=== PATIENT | male | born 1985 | race African-American/Black ===

== ENCOUNTER 2017-09-11 12:09 | Inpatient (IN) | payer OTHER ==
[2017-09-11 17:26] VITALS: BMI 17.1
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
[2017-09-11] MEDS ORDERED: guaiFENesin/D-METHORPHAN HB 10 ML UNIT-DOSE CUPS PO PRN (18:20)
[2017-09-11] MEDS ORDERED: chlordiazePOXIDE HCL 25 MG CAPSULE PO PRN (18:20)
[2017-09-11] MEDS ORDERED: hydrOXYzine PAMOATE 50 MG CAPSULE (FP) PO PRN (18:20)
[2017-09-11] MEDS ORDERED: MAG HYDROX/AL HYDROX/SIMETH 30 ML UNIT-DOSE CUP PO PRN (18:20)
[2017-09-11] MEDS ORDERED: ACETAMINOPHEN 325 MG TABLET (FP) PO PRN (18:20)
[2017-09-11] MEDS ORDERED: MAGNESIUM CITRATE 300 ML BOTTLE PO PRN (18:20)
[2017-09-11] MEDS ORDERED: MAGNESIUM HYDROX 2400MG/30ML ORAL SUSPENSION 30 ML CUP PO PRN (18:20)
[2017-09-11] MEDS ORDERED: LOPERAMIDE HCL 2 MG CAPSULE PO PRN (18:20)
[2017-09-11] MEDS ORDERED: NICOTINE POLACRILEX 2 MG GUM BC PRN (18:20)
[2017-09-11] MEDS ORDERED: P-EPHED 60MG/TRIPROLIDI 2.5MG TABLET PO PRN (18:20)
[2017-09-11] MEDS ORDERED: MENTHOL/PHENOL 1 EACH UD MM PRN (18:20)
[2017-09-11] MEDS ORDERED: chlordiazePOXIDE HCL 25 MG CAPSULE PO ONE (19:15)
[2017-09-11] MEDS ORDERED: MELATONIN 5 MG TABLETS PO PRN (22:00)
[2017-09-11] MEDS: THIAMINE HCL 100 MG TABLET (FP) PO SCH (22:43)
[2017-09-11] MEDS: chlordiazePOXIDE HCL 25 MG CAPSULE PO SCH (22:43)
[2017-09-11 23:41] LABS: URINE APPEARANCE CLEAR; URINE BLOOD NEGATIVE (NEGATIVE); URINE COLOR AMBER; URINE GLUCOSE (UA) NEGATIVE (NEGATIVE); URINE KETONE NEGATIVE (NEGATIVE); URINE LEUK ESTERASE NEGATIVE (NEGATIVE); URINE NITRITE NEGATIVE (NEGATIVE); URINE UROBILINOGEN 4.0 E.U/dl mg/dL (0.2-1.0)
[2017-09-12 00:12] LABS: URINE PROTEIN 2+ (NEGATIVE)
[2017-09-12 00:30] LABS: EPI CELLS RARE /HPF (FEW); URINE HYALINE CAST 20 /lpf; URINE MUCUS MANY
[2017-09-12] MEDS: chlordiazePOXIDE HCL 25 MG CAPSULE PO SCH ×4 (05:12→22:21)
[2017-09-12] MEDS: NICOTINE 14 MG/24 HOURS TOPICAL PATCH TD SCH (10:29)
[2017-09-12] MEDS: PRENATAL VITAMINS W/ FOLIC ACID TABLET (FP) PO SCH (10:29)
[2017-09-12] MEDS ORDERED: ONDANSETRON *ODT* 4 MG TABLET SL PRN (10:34)
[2017-09-12 10:37] LABS: HEMATOCRIT 37.5 % (35.4-49); HEMOGLOBIN 12.7 GM/dL (11.7-16.9); MCHC 33.9 g/dl (32.0-35.9); MEAN CELL VOLUME 97.4 fl (80-96); MEAN PLT VOLUME 9.8 fl (7.5-11.1); PLATELET COUNT 105 K/MM3 (134-434); RBC 3.85 M/mm3 (4.00-5.60); RDW 12.8 % (11.9-15.9); WHITE BLOOD COUNT 2.9 K/mm3 (4.0-10.0)
[2017-09-12 10:39] LABS: ALBUMIN 3.7 g/dl (3.4-5.0); ANION GAP 8 (8-16); BLOOD UREA NITROGEN 4 mg/dL (7-18); CALCIUM 8.4 mg/dL (8.5-10.1); CHLORIDE 95 mmol/L (98-107); CO2 33 mmol/L (21-32); GLUCOSE,RANDOM 79 mg/dL (74-106); SODIUM 136 mmol/L (136-145)
[2017-09-12 10:49] LABS: ALK PHOS 101 U/L (45-117); BILIRUBIN,TOTAL 1.5 mg/dL (0.2-1.0); CREATININE 0.8 mg/dL (0.7-1.3); SGPT/ALT 334 U/L (12-78); TOT PROT 7.4 g/dl (6.4-8.2)
[2017-09-12 11:18] LABS: POTASSIUM 2.6 mmol/L (3.5-5.1); SGOT/AST 1133 U/L (15-37)
[2017-09-12] MEDS ORDERED: POTASSIUM CHLORIDE TABS 20 MEQ TABLET.ER (FP) PO ONE (12:45)
[2017-09-12] MEDS ORDERED: TETRAHYDROZOLINE HCL EYE DROPS OU PRN (14:26)
--- NOTE | 2017-09-12 14:34 | PN ---
S CIWA - CIWA Score Nausea/Vomitin Muscle Tremors: 3 Anxiety: 4-Mod. Anxious/Guarded Agitation: 0-Normal Activity Paroxysmal Sweats: 3 Orientation: 0-Oriented Tacttile Disturbances: 3-Moderate Itch/Numb/Burn Auditory Disturbances: 1-Very Mild Visual Disturbances: 2-Mild Sensitivity Headache: 0-None Present CIWA-Ar Total Score: 19 BHS Progress Note (SOAP) Subjective: Sweating, Fatigue, Anxious, Nausea, Tremors, constipation. Objective: PATIENT A & O X 3. NO ACUTE DISTRESS. 09/12/17 14:29 Vital Signs Temperature 98.1 F 09/12/17 11:16 Pulse Rate 82 09/12/17 12:30 Respiratory Rate 20 09/12/17 12:30 Blood Pressure 108/71 09/12/17 11:16 O2 Sat by Pulse Oximetry (%) Laboratory Tests 09/11/17 09/12/17 09/12/17 21:47 07:50 07:50 WBC RBC Hgb Hct MCV MCH MCHC RDW Plt Count MPV Sodium 136 Potassium 2.6 L* D Chloride 95 L Carbon Dioxide 33 H Anion Gap 8 BUN 4 L D Creatinine 0.8 Creat Clearance w eGFR > 60 Random Glucose 79 Calcium 8.4 L Total Bilirubin 1.5 H D AST 1133 H ALT 334 H D Alkaline Phosphatase 101 Total Protein 7.4 Albumin 3.7 Urine Color Adrienne Urine Appearance Clear Urine pH 5.0 D Ur Specific [place] 1.029 Urine Protein 2+ H Urine Glucose (UA) Negative Urine Ketones Negative Urine Blood Negative Urine Nitrite Negative Urine Bilirubin 4.0 Urine Urobilinogen 4.0 e.u/dl Ur Leukocyte Esterase Negative Urine WBC (Auto) 7 Urine RBC (Auto) None Ur Epithelial Cells Rare Hyaline Casts 20 Urine Mucus Many RPR Titer Nonreactive HIV 1&2 Antibody Screen HIV P24 Antigen 09/12/17 09/12/17 07:50 08:00 WBC 2.9 L D RBC 3.85 L Hgb 12.7 D Hct 37.5 MCV 97.4 H MCH 33.0 MCHC 33.9 RDW 12.8 Plt Count 105 L D MPV 9.8 D Sodium Potassium Chloride Carbon Dioxide Anion Gap BUN Creatinine Creat Clearance w eGFR Random Glucose Calcium Total Bilirubin AST ALT Alkaline Phosphatase Total Protein Albumin Urine Color Urine Appearance Urine pH Ur Specific [place] Urine Protein Urine Glucose (UA) Urine Ketones Urine Blood Urine Nitrite Urine Bilirubin Urine Urobilinogen Ur Leukocyte Esterase Urine WBC (Auto) Urine RBC (Auto) Ur Epithelial Cells Hyaline Casts Urine Mucus RPR Titer HIV 1&2 Antibody Screen Negative HIV P24 Antigen Negative LABS NOTED. Assessment: 09/12/17 14:30 WITHDRAWAL SYMPTOMS. HYPOKALEMIA. 09/12/17 14:30 Plan: CONTINUE DETOX. INCREASE DAILY PO FLUID INTAKE. K-DUR, 40 MEQ PO X 1 NOW, THEN 20 MEQ PO BID (LIQUID) AFTER. HEPATIC FUNCTION PANEL AND REPEAT K LEVEL ON 09/14/2017 FOR ADMISSION ABNORMALITIES. PRN IMMODIUM FOR DIARRHEA. PRN ZOFRAN SL FOR NAUSEA / VOMITING.
--- NOTE | 2017-09-12 14:44 | CONSULT ---
[facility] Psychiatric Consult - Data Date of interview: 09/12/17 Admission source: [facility] Identifying data: Pt. is a 31 year old single male, without kids, unemployed, currently living with family and receivng financial assistance (food stamps). This is one of multiple admissions for patient. Pt. admitted to for alcohol dependence. Substance Abuse History: Following information confirmed with Mr. Alanis: - Smoking Cessation. Smoking history: Current some day smoker. Aproximately how many cigarettes per day: 10. Cigars Per Day: 0. Hx Chewing Tobacco Use: No. Initiated information on smoking cessation: Yes. 'Breaking Loose' booklet given: 09/11/17. - Substance & Tx. History. Hx Alcohol Use: Yes. Hx Substance Use: Yes. Substance Use Type: Alcohol. Hx Substance Use Treatment: Yes ( [facility] January 2017. ). - Substances Abused. Alcohol. Route : Oral. Frequency: Daily. Amount used: 2 pints vodka. Age of first use: 11. Date of Last Use: 09/11/17 Medical History: Anemia, Seizures (r/t ETOH), fx chinbone and had surgry done in 06/2014 has plate, fx mandible no surgery Psychiatric History: Pt. denies h/o psychiatric hospitalizatios, outpatient care , and suicide attempt. Physical/Sexual Abuse/Trauma History: Denies. Mental Status Exam - Mental Status Exam Alert and Oriented to: Time, Place, Person Cognitive Function: Good Patient Appearance: Well Groomed Mood: Euthymic Affect: Mood Congruent Patient Behavior: Cooperative Speech Pattern: Appropriate Voice Loudness: Normal Thought Process: Goal Oriented Hallucinations: Denies Suicidal Ideation: Denies Homicidal Ideation: Denies Insight/Judgement: Poor Sleep: Poorly Appetite: Fair Muscle strength/Tone: Normal Gait/Station: Normal Psychiatric Findings - Problem List ([place] 1, 2,3) (1) Insomnia Current Visit: Yes Status: Acute (2) Alcohol dependence with withdrawal Current Visit: Yes Status: Acute Qualifiers: Complication of substance-induced condition: uncomplicated Qualified Code(s ): F10.230 - Alcohol dependence with withdrawal, uncomplicated (3) Nicotine dependence Current Visit: Yes Status: Chronic Qualifiers: Nicotine product type: cigarettes Substance use status: uncomplicated Qualified Code(s): F17.210 - Nicotine dependence, cigarettes, uncomplicated - Initial Treatment Plan Initial Treatment Plan: Psychoeducation provided. Detoxification in progress. Ambien 10mg qhs prn ordered for insomnia. Benefits and side effects discussed. Pt. made aware of the risk of parasomnia. Verbal consent given. Will continue to monitor patient.
[2017-09-12] MEDS: POTASSIUM CHLORIDE ORAL LIQUID 20 MEQ/15 ML PO SCH (22:20)
[2017-09-12] MEDS: ZOLPIDEM TARTRATE 10 MG TABLET (PARK CARE ONLY) PO PRN (22:21)
[2017-09-12] MEDS: THIAMINE HCL 100 MG TABLET (FP) PO SCH (22:21)
[2017-09-13] MEDS: chlordiazePOXIDE HCL 25 MG CAPSULE PO SCH ×3 (05:21→17:37)
[2017-09-13] MEDS: POTASSIUM CHLORIDE ORAL LIQUID 20 MEQ/15 ML PO SCH ×4 (10:29→22:23)
[2017-09-13] MEDS: NICOTINE 14 MG/24 HOURS TOPICAL PATCH TD SCH (10:29)
[2017-09-13] MEDS: PRENATAL VITAMINS W/ FOLIC ACID TABLET (FP) PO SCH (10:29)
--- NOTE | 2017-09-13 11:26 | PN ---
[facility] CIWA - CIWA Score Nausea/Vomitin-No Nausea/No Vomiting Muscle Tremors: 4-Moderate,w/Arms Extend Anxiety: 3 Agitation: 3 Paroxysmal Sweats: 3 Orientation: 0-Oriented Tacttile Disturbances: 0-None Auditory Disturbances: 0-None Visual Disturbances: 0-None Headache: 0-None Present CIWA-Ar Total Score: 13 S Progress Note (SOAP) Subjective: sweats shakes chills at night body aches Objective: 09/13/17 11:25 Vital Signs Temperature 96.5 F L 09/13/17 11:07 Pulse Rate 70 09/13/17 11:07 Respiratory Rate 18 09/13/17 11:07 Blood Pressure 103/79 09/13/17 11:07 O2 Sat by Pulse Oximetry (%) Laboratory Tests 09/11/17 09/12/17 09/12/17 21:47 07:50 07:50 WBC RBC Hgb Hct MCV MCH MCHC RDW Plt Count MPV Sodium 136 Potassium 2.6 L* D Chloride 95 L Carbon Dioxide 33 H Anion Gap 8 BUN 4 L D Creatinine 0.8 Creat Clearance w eGFR > 60 Random Glucose 79 Calcium 8.4 L Total Bilirubin 1.5 H D AST 1133 H ALT 334 H D Alkaline Phosphatase 101 Total Protein 7.4 Albumin 3.7 Urine Color Adrienne Urine Appearance Clear Urine pH 5.0 D Ur Specific [place] 1.029 Urine Protein 2+ H Urine Glucose (UA) Negative Urine Ketones Negative Urine Blood Negative Urine Nitrite Negative Urine Bilirubin 4.0 Urine Urobilinogen 4.0 e.u/dl Ur Leukocyte Esterase Negative Urine WBC (Auto) 7 Urine RBC (Auto) None Ur Epithelial Cells Rare Hyaline Casts 20 Urine Mucus Many RPR Titer Nonreactive HIV 1&2 Antibody Screen HIV P24 Antigen 09/12/17 09/12/17 07:50 08:00 WBC 2.9 L D RBC 3.85 L Hgb 12.7 D Hct 37.5 MCV 97.4 H MCH 33.0 MCHC 33.9 RDW 12.8 Plt Count 105 L D MPV 9.8 D Sodium Potassium Chloride Carbon Dioxide Anion Gap BUN Creatinine Creat Clearance w eGFR Random Glucose Calcium Total Bilirubin AST ALT Alkaline Phosphatase Total Protein Albumin Urine Color Urine Appearance Urine pH Ur Specific [place] Urine Protein Urine Glucose (UA) Urine Ketones Urine Blood Urine Nitrite Urine Bilirubin Urine Urobilinogen Ur Leukocyte Esterase Urine WBC (Auto) Urine RBC (Auto) Ur Epithelial Cells Hyaline Casts Urine Mucus RPR Titer HIV 1&2 Antibody Screen Negative HIV P24 Antigen Negative repeat ast/alt repeat u/a continue potassium Assessment: 09/13/17 11:26 withdrawal sx Plan: continue detox increase fluids f/u on new labs results
[2017-09-13 12:43] LABS: BILIRUBIN,DIRECT 0.7 mg/dL (0.0-0.2)
[2017-09-13] MEDS: THIAMINE HCL 100 MG TABLET (FP) PO SCH (22:22)
[2017-09-13] MEDS: ZOLPIDEM TARTRATE 10 MG TABLET (PARK CARE ONLY) PO PRN (22:22)
[2017-09-13] MEDS: chlordiazePOXIDE 5 MG CAPSULE PO SCH (22:23)
[2017-09-14] MEDS: chlordiazePOXIDE 5 MG CAPSULE PO SCH ×3 (06:13→17:27)
[2017-09-14 10:09] LABS: ALBUMIN 3.6 g/dl (3.4-5.0); BILIRUBIN,DIRECT 0.4 mg/dL (0.0-0.2); POTASSIUM 5.3 mmol/L (3.5-5.1)
[2017-09-14 10:10] LABS: BILIRUBIN,TOTAL 0.9 mg/dL (0.2-1.0); TOT PROT 7.2 g/dl (6.4-8.2)
[2017-09-14] MEDS: PRENATAL VITAMINS W/ FOLIC ACID TABLET (FP) PO SCH (10:22)
[2017-09-14] MEDS: NICOTINE 14 MG/24 HOURS TOPICAL PATCH TD SCH (10:23)
--- NOTE | 2017-09-14 12:42 | EKG ---
Test Reason : Blood Pressure : / mmHG Vent. Rate : 083 BPM Atrial Rate : 083 BPM P-R Int : 130 ms QRS Dur : 084 ms QT Int : 358 ms P-R-T Axes : 049 063 045 degrees QTc Int : 420 ms NORMAL SINUS RHYTHM NORMAL ECG NO PREVIOUS ECGS AVAILABLE Confirmed by ANDRY SANCHEZ MD ([id number]) on 09/14/2017 12:42:43 PM Referred By: Confirmed By:ANDRY SANCHEZ MD
--- NOTE | 2017-09-14 13:26 | PN ---
BHS Progress Note (SOAP) Subjective: Fatigue, H/A, Vomiting, Sweating. Objective: PATIENT A & O X 3. NO ACUTE DISTRESS. 09/14/17 13:22 Vital Signs Temperature 98.4 F 09/14/17 09:27 Pulse Rate 69 09/14/17 09:27 Respiratory Rate 16 09/14/17 09:27 Blood Pressure 108/75 09/14/17 09:27 O2 Sat by Pulse Oximetry (%) Laboratory Tests 09/11/17 09/12/17 09/12/17 21:47 07:50 07:50 WBC RBC Hgb Hct MCV MCH MCHC RDW Plt Count MPV Sodium 136 Potassium 2.6 L* D Chloride 95 L Carbon Dioxide 33 H Anion Gap 8 BUN 4 L D Creatinine 0.8 Creat Clearance w eGFR > 60 Random Glucose 79 Calcium 8.4 L Total Bilirubin 1.5 H D Direct Bilirubin 0.7 H AST 1133 H ALT 334 H D Alkaline Phosphatase 101 Total Protein 7.4 Albumin 3.7 Urine Color Adrienne Urine Appearance Clear Urine pH 5.0 D Ur Specific [place] 1.029 Urine Protein 2+ H Urine Glucose (UA) Negative Urine Ketones Negative Urine Blood Negative Urine Nitrite Negative Urine Bilirubin 4.0 Urine Urobilinogen 4.0 e.u/dl Ur Leukocyte Esterase Negative Urine WBC (Auto) 7 Urine RBC (Auto) None Ur Epithelial Cells Rare Hyaline Casts 20 Urine Mucus Many RPR Titer Nonreactive HIV 1&2 Antibody Screen HIV P24 Antigen 09/12/17 09/12/17 09/14/17 07:50 08:00 07:30 WBC 2.9 L D RBC 3.85 L Hgb 12.7 D Hct 37.5 MCV 97.4 H MCH 33.0 MCHC 33.9 RDW 12.8 Plt Count 105 L D MPV 9.8 D Sodium Potassium 5.3 H D Chloride Carbon Dioxide Anion Gap BUN Creatinine Creat Clearance w eGFR Random Glucose Calcium Total Bilirubin 0.9 D Direct Bilirubin 0.4 H D AST 274 H D ALT 199 H D Alkaline Phosphatase 113 Total Protein 7.2 Albumin 3.6 Urine Color Urine Appearance Urine pH Ur Specific [place] Urine Protein Urine Glucose (UA) Urine Ketones Urine Blood Urine Nitrite Urine Bilirubin Urine Urobilinogen Ur Leukocyte Esterase Urine WBC (Auto) Urine RBC (Auto) Ur Epithelial Cells Hyaline Casts Urine Mucus RPR Titer HIV 1&2 Antibody Screen Negative HIV P24 Antigen Negative LABS NOTED. RESULT OF REPEAT K LEVEL NOTED. 09/14/17 13:25 Assessment: 09/14/17 13:23 WITHDRAWAL SYMPTOMS. Plan: CONTINUE DETOX. PRN ELEAZAR ORTEGA FOR VOMITING. K-DUR PREVIOUSLY D/C'D. REPEAT K LEVEL TOMORROW AM.
[2017-09-14] MEDS: IBUPROFEN 400 MG TABLET (FP) PO PRN (13:40)
--- NOTE | 2017-09-14 17:07 | PN ---
S Progress Note Note: Results of CXR (for Positive PPD found during this Detox admission) noted. Patient denies current Chest Pain, SOB, and cough. Patient advised to follow-up with LOWERATOR OPERATOR after discharge from Detox for further medical evaluation. Chon Daniels NP
[2017-09-14] MEDS: THIAMINE HCL 100 MG TABLET (FP) PO SCH (22:15)
[2017-09-14] MEDS: chlordiazePOXIDE HCL 10 MG CAPSULE PO SCH (22:15)
[2017-09-14] MEDS: ZOLPIDEM TARTRATE 10 MG TABLET (PARK CARE ONLY) PO PRN (22:16)
[2017-09-15] MEDS: chlordiazePOXIDE HCL 10 MG CAPSULE PO SCH ×3 (05:46→17:50)
[2017-09-15] MEDS: PRENATAL VITAMINS W/ FOLIC ACID TABLET (FP) PO SCH (10:19)
[2017-09-15] MEDS: NICOTINE 14 MG/24 HOURS TOPICAL PATCH TD SCH (10:19)
--- NOTE | 2017-09-15 12:25 | PN ---
S Progress Note (SOAP) Subjective: Sweating, Fatigue, Anxious. Objective: PATIENT A & O X 3, OBSERVED AMBULATING ON UNIT. NO ACUTE DISTRESS. PATIENT DENIES CHEST PAIN, SOB, AND DIZZINESS. LUNG SOUND AUSCULTATED CLEAR AND EQUAL BILATERALLY. 09/15/17 12:20 Vital Signs Temperature 97.1 F L 09/15/17 09:08 Pulse Rate 79 09/15/17 09:08 Respiratory Rate 16 09/15/17 09:08 Blood Pressure 94/64 09/15/17 09:08 O2 Sat by Pulse Oximetry (%) Laboratory Tests 09/11/17 09/12/17 09/12/17 21:47 07:50 07:50 WBC RBC Hgb Hct MCV MCH MCHC RDW Plt Count MPV Sodium 136 Potassium 2.6 L* D Chloride 95 L Carbon Dioxide 33 H Anion Gap 8 BUN 4 L D Creatinine 0.8 Creat Clearance w eGFR > 60 Random Glucose 79 Calcium 8.4 L Total Bilirubin 1.5 H D Direct Bilirubin 0.7 H AST 1133 H ALT 334 H D Alkaline Phosphatase 101 Total Protein 7.4 Albumin 3.7 Urine Color Adrienne Urine Appearance Clear Urine pH 5.0 D Ur Specific [place] 1.029 Urine Protein 2+ H Urine Glucose (UA) Negative Urine Ketones Negative Urine Blood Negative Urine Nitrite Negative Urine Bilirubin 4.0 Urine Urobilinogen 4.0 e.u/dl Ur Leukocyte Esterase Negative Urine WBC (Auto) 7 Urine RBC (Auto) None Ur Epithelial Cells Rare Hyaline Casts 20 Urine Mucus Many RPR Titer Nonreactive HIV 1&2 Antibody Screen HIV P24 Antigen 09/12/17 09/12/17 09/14/17 07:50 08:00 07:30 WBC 2.9 L D RBC 3.85 L Hgb 12.7 D Hct 37.5 MCV 97.4 H MCH 33.0 MCHC 33.9 RDW 12.8 Plt Count 105 L D MPV 9.8 D Sodium Potassium 5.3 H D Chloride Carbon Dioxide Anion Gap BUN Creatinine Creat Clearance w eGFR Random Glucose Calcium Total Bilirubin 0.9 D Direct Bilirubin 0.4 H D AST 274 H D ALT 199 H D Alkaline Phosphatase 113 Total Protein 7.2 Albumin 3.6 Urine Color Urine Appearance Urine pH Ur Specific [place] Urine Protein Urine Glucose (UA) Urine Ketones Urine Blood Urine Nitrite Urine Bilirubin Urine Urobilinogen Ur Leukocyte Esterase Urine WBC (Auto) Urine RBC (Auto) Ur Epithelial Cells Hyaline Casts Urine Mucus RPR Titer HIV 1&2 Antibody Screen Negative HIV P24 Antigen Negative LABS NOTED. RESULTS OF REPEAT K LEVEL PENDING. 09/15/17 12:24 Assessment: 09/15/17 12:21 WITHDRAWAL SYMPTOMS. Plan: CONTINUE DETOX. PATIENT TO BE HELD OVER ON DETOX UNIT UNTIL TOMORROW AM, AT WHICH TIME TRANSPORTATION WILL BE SENT FROM [facility] ([facility] WHERE PATIENT WILL GO FOR AFTERCARE. PATIENT ADVISED TO FOLLOW-UP WITH BRAIN SURGEON AT [facility]) FOR POSITIVE PPD RESULT AND FOR ELEVATED LIVER ENZYME RESULTS WHILE ADMITTED FOR DETOX. COPY OF CXR DONE WHILE ADMITTED FOR DETOX WILL BE GIVEN TO PATIENT FOR HIM TO TAKE WITH HIM TO BRAIN SURGEON FOR FOLLOW-UP.
[2017-09-15] MEDS: THIAMINE HCL 100 MG TABLET (FP) PO SCH (22:28)
[2017-09-16 09:08] VITALS: BP 128/76; PULSE 78; TEMP 98.4
[2017-09-16] MEDS: IBUPROFEN 400 MG TABLET (FP) PO PRN (10:00)
[2017-09-16] MEDS: NICOTINE 14 MG/24 HOURS TOPICAL PATCH TD SCH (10:24)
[2017-09-16] MEDS: PRENATAL VITAMINS W/ FOLIC ACID TABLET (FP) PO SCH (10:24)
--- NOTE | 2017-09-16 15:53 | PN ---
BHS Progress Note (SOAP) Subjective: Patient denies current Detox symptoms and reports that he feels well overall. Objective: PATIENT A & O X 3, OBSERVED AMBULATING ON UNIT. NO ACUTE DISTRESS. 09/16/17 15:52 Vital Signs Temperature 98.4 F 09/16/17 09:07 Pulse Rate 78 09/16/17 09:07 Respiratory Rate 18 09/16/17 09:07 Blood Pressure 128/76 09/16/17 09:07 O2 Sat by Pulse Oximetry (%) Laboratory Tests 09/11/17 09/12/17 09/12/17 21:47 07:50 07:50 WBC RBC Hgb Hct MCV MCH MCHC RDW Plt Count MPV Sodium 136 Potassium 2.6 L* D Chloride 95 L Carbon Dioxide 33 H Anion Gap 8 BUN 4 L D Creatinine 0.8 Creat Clearance w eGFR > 60 Random Glucose 79 Calcium 8.4 L Total Bilirubin 1.5 H D Direct Bilirubin 0.7 H AST 1133 H ALT 334 H D Alkaline Phosphatase 101 Total Protein 7.4 Albumin 3.7 Urine Color Adrienne Urine Appearance Clear Urine pH 5.0 D Ur Specific [place] 1.029 Urine Protein 2+ H Urine Glucose (UA) Negative Urine Ketones Negative Urine Blood Negative Urine Nitrite Negative Urine Bilirubin 4.0 Urine Urobilinogen 4.0 e.u/dl Ur Leukocyte Esterase Negative Urine WBC (Auto) 7 Urine RBC (Auto) None Ur Epithelial Cells Rare Hyaline Casts 20 Urine Mucus Many RPR Titer Nonreactive HIV 1&2 Antibody Screen HIV P24 Antigen 09/12/17 09/12/17 09/14/17 07:50 08:00 07:30 WBC 2.9 L D RBC 3.85 L Hgb 12.7 D Hct 37.5 MCV 97.4 H MCH 33.0 MCHC 33.9 RDW 12.8 Plt Count 105 L D MPV 9.8 D Sodium Potassium 5.3 H D Chloride Carbon Dioxide Anion Gap BUN Creatinine Creat Clearance w eGFR Random Glucose Calcium Total Bilirubin 0.9 D Direct Bilirubin 0.4 H D AST 274 H D ALT 199 H D Alkaline Phosphatase 113 Total Protein 7.2 Albumin 3.6 Urine Color Urine Appearance Urine pH Ur Specific [place] Urine Protein Urine Glucose (UA) Urine Ketones Urine Blood Urine Nitrite Urine Bilirubin Urine Urobilinogen Ur Leukocyte Esterase Urine WBC (Auto) Urine RBC (Auto) Ur Epithelial Cells Hyaline Casts Urine Mucus RPR Titer HIV 1&2 Antibody Screen Negative HIV P24 Antigen Negative 09/15/17 08:35 WBC RBC Hgb Hct MCV MCH MCHC RDW Plt Count MPV Sodium Potassium 5.2 H Chloride Carbon Dioxide Anion Gap BUN Creatinine Creat Clearance w eGFR Random Glucose Calcium Total Bilirubin Direct Bilirubin AST ALT Alkaline Phosphatase Total Protein Albumin Urine Color Urine Appearance Urine pH Ur Specific [place] Urine Protein Urine Glucose (UA) Urine Ketones Urine Blood Urine Nitrite Urine Bilirubin Urine Urobilinogen Ur Leukocyte Esterase Urine WBC (Auto) Urine RBC (Auto) Ur Epithelial Cells Hyaline Casts Urine Mucus RPR Titer HIV 1&2 Antibody Screen HIV P24 Antigen LABS NOTED. Assessment: 09/16/17 15:52 COMPLETION OF DETOX REGIMEN. Plan: PATIENT SCHEDULED FOR DISCHARGE FROM DETOX TODAY.
--- NOTE | 2017-09-16 15:56 | DS ---
[facility] Detox Discharge Summary Admission Date: 09/11/17 Discharge Date: 09/16/17 - History Present History: Alcohol Dependence Additional Comments: PATIENT GOING TO [facility] ([place], [place] FOR AFTERCARE. PATIENT ADVISED TO FOLLOW-UP WITH BRUSHER WARP AT [facility] ([place], [place] AFTER DISCHARGE FROM REHAB FOR GENERAL MEDICAL ASSESSMENT AND FOR POSITIVE PPD (CXR NEGATIVE FOR ACUTE DISEASE) AND FOR ABNORMAL POTASSIUM AND LIVER ENZYME LEVELS WHILE ADMITTED FOR DETOX. COPIES OF CXR AND OF ALL LABS DRAWN WHILE ADMITTED FOR DETOX GIVEN TO PATIENT AT TIME OF DISCHARGE. PATIENT WAS DISCHARGED FROM DETOX UNIT IN STABLE MEDICAL CONDITION. Pertinent Past History: History of Anemia, Low Body Mass Index (BMI), Nicotine Dependence, Bereavement, Insomnia, History of Seizures (ETOH-Related). - Physical Exam Results Vital Signs: Vital Signs Temperature 98.4 F 09/16/17 09:07 Pulse Rate 78 09/16/17 09:07 Respiratory Rate 18 09/16/17 09:07 Blood Pressure 128/76 09/16/17 09:07 O2 Sat by Pulse Oximetry (%) Pertinent Admission Physical Exam Findings: WITHDRAWAL SYMPTOMS. Laboratory Tests 09/11/17 09/12/17 09/12/17 21:47 07:50 07:50 WBC RBC Hgb Hct MCV MCH MCHC RDW Plt Count MPV Sodium 136 Potassium 2.6 L* D Chloride 95 L Carbon Dioxide 33 H Anion Gap 8 BUN 4 L D Creatinine 0.8 Creat Clearance w eGFR > 60 Random Glucose 79 Calcium 8.4 L Total Bilirubin 1.5 H D Direct Bilirubin 0.7 H AST 1133 H ALT 334 H D Alkaline Phosphatase 101 Total Protein 7.4 Albumin 3.7 Urine Color Adrienne Urine Appearance Clear Urine pH 5.0 D Ur Specific [place] 1.029 Urine Protein 2+ H Urine Glucose (UA) Negative Urine Ketones Negative Urine Blood Negative Urine Nitrite Negative Urine Bilirubin 4.0 Urine Urobilinogen 4.0 e.u/dl Ur Leukocyte Esterase Negative Urine WBC (Auto) 7 Urine RBC (Auto) None Ur Epithelial Cells Rare Hyaline Casts 20 Urine Mucus Many RPR Titer Nonreactive HIV 1&2 Antibody Screen HIV P24 Antigen 09/12/17 09/12/17 09/14/17 07:50 08:00 07:30 WBC 2.9 L D RBC 3.85 L Hgb 12.7 D Hct 37.5 MCV 97.4 H MCH 33.0 MCHC 33.9 RDW 12.8 Plt Count 105 L D MPV 9.8 D Sodium Potassium 5.3 H D Chloride Carbon Dioxide Anion Gap BUN Creatinine Creat Clearance w eGFR Random Glucose Calcium Total Bilirubin 0.9 D Direct Bilirubin 0.4 H D AST 274 H D ALT 199 H D Alkaline Phosphatase 113 Total Protein 7.2 Albumin 3.6 Urine Color Urine Appearance Urine pH Ur Specific [place] Urine Protein Urine Glucose (UA) Urine Ketones Urine Blood Urine Nitrite Urine Bilirubin Urine Urobilinogen Ur Leukocyte Esterase Urine WBC (Auto) Urine RBC (Auto) Ur Epithelial Cells Hyaline Casts Urine Mucus RPR Titer HIV 1&2 Antibody Screen Negative HIV P24 Antigen Negative 09/15/17 08:35 WBC RBC Hgb Hct MCV MCH MCHC RDW Plt Count MPV Sodium Potassium 5.2 H Chloride Carbon Dioxide Anion Gap BUN Creatinine Creat Clearance w eGFR Random Glucose Calcium Total Bilirubin Direct Bilirubin AST ALT Alkaline Phosphatase Total Protein Albumin Urine Color Urine Appearance Urine pH Ur Specific [place] Urine Protein Urine Glucose (UA) Urine Ketones Urine Blood Urine Nitrite Urine Bilirubin Urine Urobilinogen Ur Leukocyte Esterase Urine WBC (Auto) Urine RBC (Auto) Ur Epithelial Cells Hyaline Casts Urine Mucus RPR Titer HIV 1&2 Antibody Screen HIV P24 Antigen LABS NOTED. - Treatment Hospital Course: Detox Protocol Followed, Detoxed Safely, Responded well, Discharged Condition Good, Rehab Referral Accepted Patient has Accepted a Rehab Referral to: [facility] ([place], [place] - Medication Discharge Medications: Ambulatory Orders NK [No Known Home Medication] 09/11/17 - Diagnosis (1) Alcohol dependence with withdrawal Status: Acute Qualifiers: Complication of substance-induced condition: uncomplicated Qualified Code(s ): F10.230 - Alcohol dependence with withdrawal, uncomplicated (2) Bereavement Status: Acute (3) Low body mass index (BMI) Status: Acute (4) Nicotine dependence Status: Chronic Qualifiers: Nicotine product type: cigarettes Substance use status: uncomplicated Qualified Code(s): F17.210 - Nicotine dependence, cigarettes, uncomplicated (5) Seizure Status: Acute (6) Anemia Status: Chronic Qualifiers: Anemia type: unspecified type Qualified Code(s): D64.9 - Anemia, unspecified (7) Insomnia Status: Acute Qualifiers: Insomnia type: unspecified Qualified Code(s): G47.00 - Insomnia, unspecified - AMA Did Patient Leave Against Medical Advice: No
== END 2017-09-16 11:35 | disposition home or self-care (01) | DRG 775 ==
LOC: YASAS 12:09 → Y3N 18:54
PROVIDERS: ADMIT Internal Medicine; ATTEND Internal Medicine
PROC: HZ2ZZZZ Detoxification Services for Substance Abuse Treatment (ICD-10-PCS; principal; 2017-09-11)
DX: F10.230 Alcohol dependence with withdrawal, uncomplicated (principal); F17.210 Nicotine dependence, cigarettes, uncomplicated; G47.00 Insomnia, unspecified; D64.9 Anemia, unspecified; Z68.1 Body mass index [BMI] 19.9 or less, adult; Z86.69 Personal history of other diseases of the nervous system and sense organs; Z63.4 Disappearance and death of family member
CPT/HCPCS: 36415; 71045-TC-FY; 80053; 80076; 81003; 81015; 84132; 85027; 86593; 87389; 93005; 93010

== ENCOUNTER 2021-07-03 14:34 | Inpatient (IN) | payer OTHER ==
[2021-07-03] MEDS ORDERED: MAGNESIUM HYDROX 2400MG/30ML ORAL SUSPENSION 30 ML CUP PO PRN (15:49)
[2021-07-03] MEDS ORDERED: MAG HYDROX/AL HYDROX/SIMETH 30 ML UNIT-DOSE CUP PO PRN (15:49)
[2021-07-03] MEDS ORDERED: chlordiazePOXIDE HCL 25 MG CAPSULE PO PRN (15:49)
[2021-07-03] MEDS ORDERED: MENTHOL/PHENOL 1 EACH UD MM PRN (15:49)
[2021-07-03] MEDS ORDERED: ACETAMINOPHEN 325 MG TABLET (FP) PO PRN ×2 (15:49)
[2021-07-03] MEDS ORDERED: NICOTINE 10 MG CARTRIDGE (INHALER) IH PRN (15:49)
[2021-07-03] MEDS ORDERED: ONDANSETRON *ODT* 4 MG TABLET SL PRN (15:49)
[2021-07-03] MEDS ORDERED: MAGNESIUM CITRATE 300 ML BOTTLE PO PRN (15:49)
[2021-07-03] MEDS ORDERED: BISMUTH SUBSALICYLATE 524 MG/30 ML PO PRN (15:49)
[2021-07-03 17:51] VITALS: BMI 16.4
[2021-07-03] MEDS ORDERED: MELATONIN 5 MG TABLETS PO SCH (22:00)
[2021-07-03] MEDS: chlordiazePOXIDE HCL 25 MG CAPSULE PO SCH ×3 (23:45→23:56)
[2021-07-03] MEDS: hydrOXYzine PAMOATE 25 MG CAPSULE (FP) PO SCH ×2 (23:52→23:55)
[2021-07-03] MEDS: THIAMINE HCL 100 MG TABLET (FP) PO SCH (23:55)
[2021-07-04] MEDS: chlordiazePOXIDE HCL 25 MG CAPSULE PO SCH ×2 (01:08→06:10)
[2021-07-04] MEDS: hydrOXYzine PAMOATE 25 MG CAPSULE (FP) PO SCH ×2 (06:10→10:40)
[2021-07-04 10:20] LABS: HEMATOCRIT 31.3 % (35.4-49); HEMOGLOBIN 10.3 GM/dL (11.7-16.9); MCH 31.3 pg (25.7-33.7); MCHC 32.8 g/dl (32.0-35.9); MEAN CELL VOLUME 95.4 fl (80-96); MEAN PLT VOLUME 8.5 fl (7.5-11.1); PLATELET COUNT 393 10^3/uL (134-434); RBC 3.28 M/mm3 (4.00-5.60); RDW 19.4 % (11.9-15.9); WHITE BLOOD COUNT 5.2 K/mm3 (4.0-10.0)
[2021-07-04 10:29] LABS: ALBUMIN 2.5 g/dl (3.4-5.0)
[2021-07-04 10:30] LABS: CALCIUM 8.2 mg/dL (8.5-10.1)
[2021-07-04 10:31] LABS: BLOOD UREA NITROGEN 6.5 mg/dL (7-18)
[2021-07-04 10:32] LABS: CREATININE 1.3 mg/dL (0.55-1.3)
[2021-07-04 10:34] LABS: BILIRUBIN,TOTAL 0.5 mg/dL (0.2-1); TOT PROT 6.4 g/dl (6.4-8.2)
[2021-07-04] MEDS: PRENATAL VITAMINS W/ FOLIC ACID TABLET (FP) PO SCH (10:40)
[2021-07-04] MEDS: METHOCARBAMOL 500 MG TABLET PO PRN ×2 (10:40→18:02)
[2021-07-04] MEDS: diazePAM 5 MG TABLET PO SCH ×3 (10:43→22:14)
[2021-07-04] MEDS: FAMOTIDINE 20 MG TABLET PO SCH ×2 (10:43→22:12)
[2021-07-04] MEDS ORDERED: hydrOXYzine PAMOATE 50 MG CAPSULE (FP) PO PRN (11:00)
[2021-07-04] MEDS ORDERED: PNEUMOC 13-VAL CONJ-DIP CRM/PF 0.5 ML DISP.SYRIN IM ONE (12:00)
[2021-07-04] MEDS ORDERED: PNEUMOCOCCAL 23 VACCINE 0.5 ML VIAL IM ONE (12:00)
[2021-07-04] MEDS: THIAMINE HCL 100 MG TABLET (FP) PO SCH (22:09)
[2021-07-04] MEDS: SUVOREXANT 10 MG TABLET PO PRN (22:12)
[2021-07-05] MEDS ORDERED: chlordiazePOXIDE HCL 25 MG CAPSULE PO SCH (05:00)
[2021-07-05] MEDS: diazePAM 5 MG TABLET PO SCH ×3 (05:48→19:00)
[2021-07-05] MEDS: FAMOTIDINE 20 MG TABLET PO SCH ×2 (10:37→22:34)
[2021-07-05] MEDS: PRENATAL VITAMINS W/ FOLIC ACID TABLET (FP) PO SCH (10:37)
[2021-07-05] MEDS: THIAMINE HCL 100 MG TABLET (FP) PO SCH (22:34)
[2021-07-05] MEDS: METHOCARBAMOL 500 MG TABLET PO PRN (22:36)
[2021-07-05] MEDS: SUVOREXANT 10 MG TABLET PO PRN (22:36)
[2021-07-06] MEDS ORDERED: chlordiazePOXIDE HCL 10 MG CAPSULE PO PRN
[2021-07-06] MEDS: diazePAM 5 MG TABLET PO SCH ×4 (01:12→22:24)
[2021-07-06] MEDS ORDERED: chlordiazePOXIDE HCL 10 MG CAPSULE PO SCH (05:00)
[2021-07-06] MEDS: IBUPROFEN 400 MG TABLET (FP) PO PRN ×3 (06:02→22:26)
[2021-07-06] MEDS: PRENATAL VITAMINS W/ FOLIC ACID TABLET (FP) PO SCH (10:29)
[2021-07-06] MEDS: FAMOTIDINE 20 MG TABLET PO SCH ×2 (10:29→22:23)
[2021-07-06] MEDS: hydrOXYzine PAMOATE 50 MG CAPSULE (FP) PO PRN (10:30)
[2021-07-06] MEDS: METHOCARBAMOL 500 MG TABLET PO PRN (10:30)
[2021-07-06] MEDS: THIAMINE HCL 100 MG TABLET (FP) PO SCH (22:23)
[2021-07-06] MEDS: SUVOREXANT 10 MG TABLET PO PRN (22:24)
[2021-07-07] MEDS ORDERED: chlordiazePOXIDE HCL 10 MG CAPSULE PO SCH (05:00)
[2021-07-07] MEDS: hydrOXYzine PAMOATE 50 MG CAPSULE (FP) PO PRN ×2 (06:01→10:28)
[2021-07-07] MEDS: METHOCARBAMOL 500 MG TABLET PO PRN ×3 (06:01→22:50)
[2021-07-07] MEDS: diazePAM 5 MG TABLET PO SCH ×2 (10:27→22:47)
[2021-07-07] MEDS: PRENATAL VITAMINS W/ FOLIC ACID TABLET (FP) PO SCH (10:27)
[2021-07-07] MEDS: FAMOTIDINE 20 MG TABLET PO SCH ×2 (10:27→22:47)
[2021-07-07] MEDS ORDERED: SUVOREXANT 10 MG TABLET PO PRN (22:00)
[2021-07-07] MEDS: THIAMINE HCL 100 MG TABLET (FP) PO SCH (22:47)
[2021-07-08] MEDS ORDERED: diazePAM 5 MG TABLET PO ONE (05:00)
[2021-07-08] MEDS ORDERED: chlordiazePOXIDE HCL 10 MG CAPSULE PO ONE (05:00)
[2021-07-08] MEDS: METHOCARBAMOL 500 MG TABLET PO PRN ×2 (05:38→10:30)
[2021-07-08 07:16] VITALS: TEMP 98.9
[2021-07-08] MEDS: FAMOTIDINE 20 MG TABLET PO SCH (10:30)
[2021-07-08] MEDS: PRENATAL VITAMINS W/ FOLIC ACID TABLET (FP) PO SCH (10:30)
[2021-07-08 13:06] VITALS: BP 96/64; PULSE 93
== END 2021-07-08 13:50 | disposition other institution (70) | DRG 775 ==
LOC: YASAS 14:34 → Y6N 21:26
PROVIDERS: ADMIT Allergy & Immunology; ATTEND Allergy & Immunology
PROC: HZ2ZZZZ Detoxification Services for Substance Abuse Treatment (ICD-10-PCS; principal; 2021-07-03)
DX: F10.230 Alcohol dependence with withdrawal, uncomplicated (principal); F12.20 Cannabis dependence, uncomplicated; F17.210 Nicotine dependence, cigarettes, uncomplicated; F10.280 Alcohol dependence with alcohol-induced anxiety disorder; F10.282 Alcohol dependence with alcohol-induced sleep disorder; D64.9 Anemia, unspecified; K86.1 Other chronic pancreatitis; K86.81 Exocrine pancreatic insufficiency; K21.9 Gastro-esophageal reflux disease without esophagitis; Z91.011 Allergy to milk products
CPT/HCPCS: 36415; 80053; 85027; 86780; 90732; 93005; 93010; C9803-CS; G0009; U0003; U0005

== ENCOUNTER 2021-07-08 14:15 | Inpatient (IN) | payer OTHER ==
[2021-07-08] MEDS ORDERED: guaiFENesin 200 MG/10 ML 10 ML UNIT-DOSE CUPS PO PRN (15:50)
[2021-07-08] MEDS ORDERED: P-EPHED 60MG/TRIPROLIDI 2.5MG TABLET PO PRN (15:50)
[2021-07-08] MEDS ORDERED: ACETAMINOPHEN 325 MG TABLET (FP) PO PRN (15:50)
[2021-07-08] MEDS ORDERED: MAGNESIUM HYDROX 2400MG/30ML ORAL SUSPENSION 30 ML CUP PO PRN (15:50)
[2021-07-08] MEDS ORDERED: MAGNESIUM CITRATE 300 ML BOTTLE PO PRN (15:50)
[2021-07-08] MEDS ORDERED: LOPERAMIDE HCL 2 MG CAPSULE PO PRN (15:50)
[2021-07-08] MEDS ORDERED: MAG HYDROX/AL HYDROX/SIMETH 30 ML UNIT-DOSE CUP PO PRN (15:50)
[2021-07-08] MEDS: hydrOXYzine PAMOATE 25 MG CAPSULE (FP) PO SCH ×2 (18:00→21:26)
[2021-07-08] MEDS: FAMOTIDINE 20 MG TABLET PO SCH (21:26)
[2021-07-08] MEDS: THIAMINE HCL 100 MG TABLET (FP) PO SCH (21:26)
[2021-07-08] MEDS: MELATONIN 5 MG TABLETS PO SCH (21:26)
[2021-07-09] MEDS: hydrOXYzine PAMOATE 25 MG CAPSULE (FP) PO SCH ×2 (06:39→10:11)
[2021-07-09] MEDS: FAMOTIDINE 20 MG TABLET PO SCH ×2 (10:11→21:21)
[2021-07-09] MEDS: PRENATAL VITAMINS W/ FOLIC ACID TABLET (FP) PO SCH (10:11)
[2021-07-09] MEDS: NICOTINE 7 MG/24 HOURS TOPICAL PATCH TD SCH (10:12)
[2021-07-09] MEDS: hydrOXYzine PAMOATE 25 MG CAPSULE (FP) PO PRN (21:21)
[2021-07-09] MEDS: THIAMINE HCL 100 MG TABLET (FP) PO SCH (21:21)
[2021-07-09] MEDS: MELATONIN 5 MG TABLETS PO SCH (21:21)
[2021-07-10] MEDS: NICOTINE 7 MG/24 HOURS TOPICAL PATCH TD SCH (09:50)
[2021-07-10] MEDS: PRENATAL VITAMINS W/ FOLIC ACID TABLET (FP) PO SCH (09:50)
[2021-07-10] MEDS: FAMOTIDINE 20 MG TABLET PO SCH ×2 (09:50→21:32)
[2021-07-10] MEDS: hydrOXYzine PAMOATE 25 MG CAPSULE (FP) PO PRN ×2 (09:52→14:06)
[2021-07-10] MEDS: NICOTINE 10 MG CARTRIDGE (INHALER) IH PRN (12:10)
[2021-07-10] MEDS: FERROUS SO4 325 MG TABLET (FP) PO SCH (18:35)
[2021-07-10] MEDS: BACLOFEN 10 MG TABLET (FP) PO PRN (18:35)
[2021-07-10] MEDS: THIAMINE HCL 100 MG TABLET (FP) PO SCH (21:32)
[2021-07-10] MEDS: SUVOREXANT 15 MG TABLET PO PRN (21:33)
[2021-07-10] MEDS ORDERED: BACLOFEN 10 MG TABLET (FP) PO SCH (22:00)
[2021-07-10] MEDS: MELATONIN 5 MG TABLETS PO SCH (23:33)
[2021-07-11] MEDS: FERROUS SO4 325 MG TABLET (FP) PO SCH ×3 (07:06→17:10)
[2021-07-11] MEDS: BACLOFEN 10 MG TABLET (FP) PO PRN (10:02)
[2021-07-11] MEDS: PRENATAL VITAMINS W/ FOLIC ACID TABLET (FP) PO SCH (10:03)
[2021-07-11] MEDS: NICOTINE 7 MG/24 HOURS TOPICAL PATCH TD SCH (10:04)
[2021-07-11] MEDS: FAMOTIDINE 20 MG TABLET PO SCH ×2 (10:55→21:13)
[2021-07-11] MEDS: NALTREXONE HCL 50 MG TABLET PO SCH (17:08)
[2021-07-11] MEDS: THIAMINE HCL 100 MG TABLET (FP) PO SCH (21:13)
[2021-07-11] MEDS: SUVOREXANT 15 MG TABLET PO PRN (21:14)
[2021-07-11] MEDS: MELATONIN 5 MG TABLETS PO SCH (23:30)
[2021-07-12] MEDS: FERROUS SO4 325 MG TABLET (FP) PO SCH ×3 (07:01→17:38)
[2021-07-12] MEDS: NICOTINE 7 MG/24 HOURS TOPICAL PATCH TD SCH (10:03)
[2021-07-12] MEDS: NALTREXONE HCL 50 MG TABLET PO SCH (10:04)
[2021-07-12] MEDS: PRENATAL VITAMINS W/ FOLIC ACID TABLET (FP) PO SCH (10:04)
[2021-07-12] MEDS: FAMOTIDINE 20 MG TABLET PO SCH ×2 (10:04→21:46)
[2021-07-12] MEDS: BACLOFEN 10 MG TABLET (FP) PO PRN (10:06)
[2021-07-12] MEDS: THIAMINE HCL 100 MG TABLET (FP) PO SCH (21:46)
[2021-07-12] MEDS: MELATONIN 5 MG TABLETS PO SCH (21:46)
[2021-07-12] MEDS: SUVOREXANT 15 MG TABLET PO PRN (21:47)
[2021-07-13] MEDS: FERROUS SO4 325 MG TABLET (FP) PO SCH ×3 (08:47→17:39)
[2021-07-13] MEDS: NALTREXONE HCL 50 MG TABLET PO SCH (09:46)
[2021-07-13] MEDS: PRENATAL VITAMINS W/ FOLIC ACID TABLET (FP) PO SCH (09:47)
[2021-07-13] MEDS: NICOTINE 7 MG/24 HOURS TOPICAL PATCH TD SCH (09:47)
[2021-07-13] MEDS: FAMOTIDINE 20 MG TABLET PO SCH ×2 (09:47→21:38)
[2021-07-13] MEDS: BACLOFEN 10 MG TABLET (FP) PO PRN (09:48)
[2021-07-13] MEDS: MELATONIN 5 MG TABLETS PO SCH (21:38)
[2021-07-13] MEDS: THIAMINE HCL 100 MG TABLET (FP) PO SCH (21:38)
[2021-07-13] MEDS: SUVOREXANT 15 MG TABLET PO PRN (21:38)
[2021-07-14] MEDS: FERROUS SO4 325 MG TABLET (FP) PO SCH ×3 (07:44→17:40)
[2021-07-14] MEDS: NALTREXONE HCL 50 MG TABLET PO SCH (10:00)
[2021-07-14] MEDS: BACLOFEN 10 MG TABLET (FP) PO PRN (10:00)
[2021-07-14] MEDS: FAMOTIDINE 20 MG TABLET PO SCH ×2 (10:00→21:21)
[2021-07-14] MEDS: NICOTINE 7 MG/24 HOURS TOPICAL PATCH TD SCH (10:01)
[2021-07-14] MEDS: PRENATAL VITAMINS W/ FOLIC ACID TABLET (FP) PO SCH (10:01)
[2021-07-14] MEDS: NICOTINE 10 MG CARTRIDGE (INHALER) IH PRN (10:14)
[2021-07-14] MEDS: THIAMINE HCL 100 MG TABLET (FP) PO SCH (21:21)
[2021-07-14] MEDS: MELATONIN 5 MG TABLETS PO SCH (21:21)
[2021-07-14] MEDS: SUVOREXANT 15 MG TABLET PO PRN (21:22)
[2021-07-15] MEDS: FERROUS SO4 325 MG TABLET (FP) PO SCH ×3 (08:11→17:49)
[2021-07-15] MEDS: FAMOTIDINE 20 MG TABLET PO SCH ×2 (10:36→21:35)
[2021-07-15] MEDS: NALTREXONE HCL 50 MG TABLET PO SCH (10:36)
[2021-07-15] MEDS: BACLOFEN 10 MG TABLET (FP) PO PRN (10:36)
[2021-07-15] MEDS: PRENATAL VITAMINS W/ FOLIC ACID TABLET (FP) PO SCH (10:37)
[2021-07-15] MEDS: NICOTINE 7 MG/24 HOURS TOPICAL PATCH TD SCH (10:39)
[2021-07-15] MEDS: hydrOXYzine PAMOATE 25 MG CAPSULE (FP) PO PRN (10:39)
[2021-07-15] MEDS: SUVOREXANT 15 MG TABLET PO PRN (21:35)
[2021-07-15] MEDS: THIAMINE HCL 100 MG TABLET (FP) PO SCH (21:35)
[2021-07-15] MEDS: MELATONIN 5 MG TABLETS PO SCH (21:36)
[2021-07-16] MEDS: FERROUS SO4 325 MG TABLET (FP) PO SCH ×3 (07:02→18:29)
[2021-07-16] MEDS: NICOTINE 7 MG/24 HOURS TOPICAL PATCH TD SCH (09:38)
[2021-07-16] MEDS: FAMOTIDINE 20 MG TABLET PO SCH ×2 (09:39→21:15)
[2021-07-16] MEDS: NALTREXONE HCL 50 MG TABLET PO SCH (09:39)
[2021-07-16] MEDS: PRENATAL VITAMINS W/ FOLIC ACID TABLET (FP) PO SCH (09:40)
[2021-07-16] MEDS: hydrOXYzine PAMOATE 25 MG CAPSULE (FP) PO PRN (09:40)
[2021-07-16] MEDS: SUVOREXANT 15 MG TABLET PO PRN (21:14)
[2021-07-16] MEDS: THIAMINE HCL 100 MG TABLET (FP) PO SCH (21:15)
[2021-07-16] MEDS: MELATONIN 5 MG TABLETS PO SCH (21:16)
[2021-07-17] MEDS: FERROUS SO4 325 MG TABLET (FP) PO SCH ×3 (07:06→18:04)
[2021-07-17] MEDS: NALTREXONE HCL 50 MG TABLET PO SCH (09:36)
[2021-07-17] MEDS: FAMOTIDINE 20 MG TABLET PO SCH ×2 (09:37→21:05)
[2021-07-17] MEDS: PRENATAL VITAMINS W/ FOLIC ACID TABLET (FP) PO SCH (09:37)
[2021-07-17] MEDS: NICOTINE 7 MG/24 HOURS TOPICAL PATCH TD SCH (09:37)
[2021-07-17] MEDS: hydrOXYzine PAMOATE 25 MG CAPSULE (FP) PO PRN (09:38)
[2021-07-17] MEDS: MELATONIN 5 MG TABLETS PO SCH (21:05)
[2021-07-17] MEDS: THIAMINE HCL 100 MG TABLET (FP) PO SCH (21:05)
[2021-07-17] MEDS: SUVOREXANT 15 MG TABLET PO PRN (21:06)
[2021-07-18] MEDS: FERROUS SO4 325 MG TABLET (FP) PO SCH ×3 (07:08→18:06)
[2021-07-18] MEDS: PRENATAL VITAMINS W/ FOLIC ACID TABLET (FP) PO SCH (10:00)
[2021-07-18] MEDS: FAMOTIDINE 20 MG TABLET PO SCH ×2 (10:00→21:37)
[2021-07-18] MEDS: NICOTINE 7 MG/24 HOURS TOPICAL PATCH TD SCH (10:00)
[2021-07-18] MEDS: NALTREXONE HCL 50 MG TABLET PO SCH (10:00)
[2021-07-18] MEDS: BACLOFEN 10 MG TABLET (FP) PO PRN (10:02)
[2021-07-18] MEDS: MINERAL OIL/PETROLAT/WATER TOPICAL CREAM 113 GM JAR TP SCH (11:30)
[2021-07-18] MEDS: COLLOIDAL OATMEAL 1 BAR EACH TP PRN (18:45)
[2021-07-18] MEDS: THIAMINE HCL 100 MG TABLET (FP) PO SCH (21:37)
[2021-07-18] MEDS: SUVOREXANT 15 MG TABLET PO PRN (21:37)
[2021-07-19] MEDS: FERROUS SO4 325 MG TABLET (FP) PO SCH ×3 (07:57→18:21)
[2021-07-19] MEDS: FAMOTIDINE 20 MG TABLET PO SCH ×2 (10:00→21:15)
[2021-07-19] MEDS: PRENATAL VITAMINS W/ FOLIC ACID TABLET (FP) PO SCH (10:00)
[2021-07-19] MEDS: NALTREXONE HCL 50 MG TABLET PO SCH (10:00)
[2021-07-19] MEDS: IBUPROFEN 400 MG TABLET (FP) PO PRN (10:01)
[2021-07-19] MEDS: MINERAL OIL/PETROLAT/WATER TOPICAL CREAM 113 GM JAR TP SCH (10:04)
[2021-07-19] MEDS: NICOTINE 7 MG/24 HOURS TOPICAL PATCH TD SCH (10:04)
[2021-07-19 14:30] LABS: HEMOGLOBIN 11.1 GM/dL (11.7-16.9); MCH 30.7 pg (25.7-33.7); MCHC 31.6 g/dl (32.0-35.9); MEAN PLT VOLUME 9.3 fl (7.5-11.1); PLATELET COUNT 375 10^3/uL (134-434); RBC 3.61 M/mm3 (4.00-5.60); RDW 15.9 % (11.9-15.9); WHITE BLOOD COUNT 11.2 K/mm3 (4.0-10.0)
[2021-07-19 14:44] LABS: CALCIUM 9.5 mg/dL (8.5-10.1)
[2021-07-19 14:45] LABS: ALBUMIN 3.5 g/dl (3.4-5.0)
[2021-07-19 14:46] LABS: BLOOD UREA NITROGEN 5.3 mg/dL (7-18)
[2021-07-19 14:48] LABS: CREATININE 1.2 mg/dL (0.55-1.3)
[2021-07-19 14:50] LABS: BILIRUBIN,TOTAL 0.3 mg/dL (0.2-1); TOT PROT 7.8 g/dl (6.4-8.2)
[2021-07-19] MEDS: SUVOREXANT 15 MG TABLET PO PRN (21:14)
[2021-07-19] MEDS: THIAMINE HCL 100 MG TABLET (FP) PO SCH (21:15)
[2021-07-20] MEDS: FERROUS SO4 325 MG TABLET (FP) PO SCH ×3 (07:14→18:04)
[2021-07-20] MEDS: MINERAL OIL/PETROLAT/WATER TOPICAL CREAM 113 GM JAR TP SCH (09:56)
[2021-07-20] MEDS: NICOTINE 7 MG/24 HOURS TOPICAL PATCH TD SCH (09:56)
[2021-07-20] MEDS: FAMOTIDINE 20 MG TABLET PO SCH ×2 (09:57→21:36)
[2021-07-20] MEDS: NALTREXONE HCL 50 MG TABLET PO SCH (09:57)
[2021-07-20] MEDS: PRENATAL VITAMINS W/ FOLIC ACID TABLET (FP) PO SCH (09:58)
[2021-07-20] MEDS: BACLOFEN 10 MG TABLET (FP) PO PRN (09:59)
[2021-07-20] MEDS: THIAMINE HCL 100 MG TABLET (FP) PO SCH (21:36)
[2021-07-20] MEDS: SUVOREXANT 15 MG TABLET PO PRN (21:36)
[2021-07-21] MEDS: FERROUS SO4 325 MG TABLET (FP) PO SCH ×3 (07:00→16:58)
[2021-07-21] MEDS: MINERAL OIL/PETROLAT/WATER TOPICAL CREAM 113 GM JAR TP SCH (09:19)
[2021-07-21] MEDS: NICOTINE 7 MG/24 HOURS TOPICAL PATCH TD SCH (09:20)
[2021-07-21] MEDS: NALTREXONE HCL 50 MG TABLET PO SCH (09:20)
[2021-07-21] MEDS: FAMOTIDINE 20 MG TABLET PO SCH ×2 (09:20→21:51)
[2021-07-21] MEDS: PRENATAL VITAMINS W/ FOLIC ACID TABLET (FP) PO SCH (09:21)
[2021-07-21] MEDS: hydrOXYzine PAMOATE 25 MG CAPSULE (FP) PO PRN (09:22)
[2021-07-21] MEDS ORDERED: SUVOREXANT 5 MG TABLET PO PRN (14:07)
[2021-07-21] MEDS: NICOTINE 10 MG CARTRIDGE (INHALER) IH PRN (14:54)
[2021-07-21] MEDS: THIAMINE HCL 100 MG TABLET (FP) PO SCH (21:51)
[2021-07-21] MEDS: SUVOREXANT 5 MG TABLET PO PRN (22:04)
[2021-07-21] MEDS ORDERED: SUVOREXANT 10 MG TABLET PO PRN (22:29)
[2021-07-22] MEDS: MINERAL OIL/PETROLAT/WATER TOPICAL CREAM 113 GM JAR TP SCH ×2 (06:36→10:05)
[2021-07-22] MEDS: FERROUS SO4 325 MG TABLET (FP) PO SCH ×3 (07:07→17:45)
[2021-07-22] MEDS: NALTREXONE HCL 50 MG TABLET PO SCH (10:04)
[2021-07-22] MEDS: NICOTINE 7 MG/24 HOURS TOPICAL PATCH TD SCH (10:05)
[2021-07-22] MEDS: PRENATAL VITAMINS W/ FOLIC ACID TABLET (FP) PO SCH (10:05)
[2021-07-22] MEDS: FAMOTIDINE 20 MG TABLET PO SCH ×2 (10:05→21:44)
[2021-07-22] MEDS: BACLOFEN 10 MG TABLET (FP) PO PRN ×2 (10:06→21:44)
[2021-07-22] MEDS: IBUPROFEN 400 MG TABLET (FP) PO PRN (15:41)
[2021-07-22] MEDS: THIAMINE HCL 100 MG TABLET (FP) PO SCH (21:44)
[2021-07-22] MEDS: SUVOREXANT 5 MG TABLET PO PRN (21:45)
[2021-07-23] MEDS: FERROUS SO4 325 MG TABLET (FP) PO SCH ×2 (07:11→12:58)
[2021-07-23 09:21] LABS: HEMATOCRIT 36.9 % (35.4-49); HEMOGLOBIN 12.3 GM/dL (11.7-16.9); MCH 31.7 pg (25.7-33.7); MCHC 33.4 g/dl (32.0-35.9); MEAN PLT VOLUME 9.4 fl (7.5-11.1); PLATELET COUNT 328 10^3/uL (134-434); RBC 3.89 M/mm3 (4.00-5.60); RDW 15.3 % (11.9-15.9); WHITE BLOOD COUNT 6.8 K/mm3 (4.0-10.0)
[2021-07-23 09:31] LABS: CALCIUM 9.8 mg/dL (8.5-10.1)
[2021-07-23 09:32] LABS: ALBUMIN 3.7 g/dl (3.4-5.0); BLOOD UREA NITROGEN 5.9 mg/dL (7-18)
[2021-07-23 09:35] LABS: CREATININE 1.2 mg/dL (0.55-1.3)
[2021-07-23 09:36] LABS: BILIRUBIN,TOTAL 0.9 mg/dL (0.2-1); TOT PROT 8.4 g/dl (6.4-8.2)
[2021-07-23] MEDS: NICOTINE 7 MG/24 HOURS TOPICAL PATCH TD SCH (10:23)
[2021-07-23] MEDS: NALTREXONE HCL 50 MG TABLET PO SCH (10:23)
[2021-07-23] MEDS: PRENATAL VITAMINS W/ FOLIC ACID TABLET (FP) PO SCH (10:23)
[2021-07-23] MEDS: FAMOTIDINE 20 MG TABLET PO SCH ×2 (10:23→21:45)
[2021-07-23] MEDS: hydrOXYzine PAMOATE 25 MG CAPSULE (FP) PO PRN (10:25)
[2021-07-23] MEDS: BACLOFEN 10 MG TABLET (FP) PO PRN (10:25)
[2021-07-23] MEDS: MINERAL OIL/PETROLAT/WATER TOPICAL CREAM 113 GM JAR TP SCH (10:27)
[2021-07-23] MEDS: THIAMINE HCL 100 MG TABLET (FP) PO SCH (21:45)
[2021-07-23] MEDS: SUVOREXANT 5 MG TABLET PO PRN (21:47)
[2021-07-24] MEDS: NICOTINE 7 MG/24 HOURS TOPICAL PATCH TD SCH (09:49)
[2021-07-24] MEDS: MINERAL OIL/PETROLAT/WATER TOPICAL CREAM 113 GM JAR TP SCH (09:49)
[2021-07-24] MEDS: FAMOTIDINE 20 MG TABLET PO SCH ×2 (09:49→21:50)
[2021-07-24] MEDS: FERROUS SO4 325 MG TABLET (FP) PO SCH (09:49)
[2021-07-24] MEDS: NALTREXONE HCL 50 MG TABLET PO SCH (09:50)
[2021-07-24] MEDS: PRENATAL VITAMINS W/ FOLIC ACID TABLET (FP) PO SCH (09:50)
[2021-07-24] MEDS: hydrOXYzine PAMOATE 25 MG CAPSULE (FP) PO PRN ×2 (09:51→21:50)
[2021-07-24] MEDS: THIAMINE HCL 100 MG TABLET (FP) PO SCH (21:50)
[2021-07-24] MEDS: SUVOREXANT 15 MG TABLET PO PRN (21:51)
[2021-07-25] MEDS: MINERAL OIL/PETROLAT/WATER TOPICAL CREAM 113 GM JAR TP SCH (09:52)
[2021-07-25] MEDS: NICOTINE 7 MG/24 HOURS TOPICAL PATCH TD SCH (09:53)
[2021-07-25] MEDS: FERROUS SO4 325 MG TABLET (FP) PO SCH (09:53)
[2021-07-25] MEDS: FAMOTIDINE 20 MG TABLET PO SCH ×2 (09:54→22:02)
[2021-07-25] MEDS: PRENATAL VITAMINS W/ FOLIC ACID TABLET (FP) PO SCH (09:54)
[2021-07-25] MEDS: NALTREXONE HCL 50 MG TABLET PO SCH (09:55)
[2021-07-25] MEDS: hydrOXYzine PAMOATE 25 MG CAPSULE (FP) PO PRN ×2 (09:55→22:04)
[2021-07-25] MEDS ORDERED: SUCCINYLCHOLINE CHLORIDE 200 MG/10 ML SYRINGE ONE (12:23)
[2021-07-25] MEDS ORDERED: ROCURONIUM BROMIDE 50 MG/5 ML SYRINGE ONE (12:23)
[2021-07-25] MEDS: IBUPROFEN 400 MG TABLET (FP) PO PRN (17:58)
[2021-07-25] MEDS: THIAMINE HCL 100 MG TABLET (FP) PO SCH (22:02)
[2021-07-26] MEDS: MINERAL OIL/PETROLAT/WATER TOPICAL CREAM 113 GM JAR TP SCH (10:08)
[2021-07-26] MEDS: FERROUS SO4 325 MG TABLET (FP) PO SCH (10:08)
[2021-07-26] MEDS: NICOTINE 7 MG/24 HOURS TOPICAL PATCH TD SCH (10:09)
[2021-07-26] MEDS: NALTREXONE HCL 50 MG TABLET PO SCH (10:10)
[2021-07-26] MEDS: hydrOXYzine PAMOATE 25 MG CAPSULE (FP) PO PRN ×2 (10:10→22:04)
[2021-07-26] MEDS: FAMOTIDINE 20 MG TABLET PO SCH ×2 (10:10→22:00)
[2021-07-26] MEDS: PRENATAL VITAMINS W/ FOLIC ACID TABLET (FP) PO SCH (10:10)
[2021-07-26] MEDS: THIAMINE HCL 100 MG TABLET (FP) PO SCH (22:00)
[2021-07-26] MEDS: SUVOREXANT 15 MG TABLET PO PRN (22:03)
[2021-07-27] MEDS: NALTREXONE HCL 50 MG TABLET PO SCH (10:10)
[2021-07-27] MEDS: FERROUS SO4 325 MG TABLET (FP) PO SCH (10:10)
[2021-07-27] MEDS: FAMOTIDINE 20 MG TABLET PO SCH ×2 (10:10→21:41)
[2021-07-27] MEDS: PRENATAL VITAMINS W/ FOLIC ACID TABLET (FP) PO SCH (10:11)
[2021-07-27] MEDS: NICOTINE 7 MG/24 HOURS TOPICAL PATCH TD SCH (10:11)
[2021-07-27] MEDS: hydrOXYzine PAMOATE 25 MG CAPSULE (FP) PO PRN ×2 (10:12→21:40)
[2021-07-27] MEDS: MINERAL OIL/PETROLAT/WATER TOPICAL CREAM 113 GM JAR TP SCH (10:13)
[2021-07-27] MEDS: SUVOREXANT 10 MG TABLET PO PRN (21:40)
[2021-07-27] MEDS: THIAMINE HCL 100 MG TABLET (FP) PO SCH (21:41)
[2021-07-28] MEDS: FAMOTIDINE 20 MG TABLET PO SCH ×2 (09:35→21:18)
[2021-07-28] MEDS: FERROUS SO4 325 MG TABLET (FP) PO SCH (09:35)
[2021-07-28] MEDS: MINERAL OIL/PETROLAT/WATER TOPICAL CREAM 113 GM JAR TP SCH (09:35)
[2021-07-28] MEDS: PRENATAL VITAMINS W/ FOLIC ACID TABLET (FP) PO SCH (09:36)
[2021-07-28] MEDS: NALTREXONE HCL 50 MG TABLET PO SCH (09:36)
[2021-07-28] MEDS: NICOTINE 7 MG/24 HOURS TOPICAL PATCH TD SCH (09:36)
[2021-07-28] MEDS: hydrOXYzine PAMOATE 25 MG CAPSULE (FP) PO PRN ×2 (09:37→21:18)
[2021-07-28] MEDS: THIAMINE HCL 100 MG TABLET (FP) PO SCH (21:17)
[2021-07-28] MEDS: SUVOREXANT 10 MG TABLET PO PRN (21:17)
[2021-07-29] MEDS: MINERAL OIL/PETROLAT/WATER TOPICAL CREAM 113 GM JAR TP SCH (10:02)
[2021-07-29] MEDS: NICOTINE 7 MG/24 HOURS TOPICAL PATCH TD SCH (10:03)
[2021-07-29] MEDS: FERROUS SO4 325 MG TABLET (FP) PO SCH (10:03)
[2021-07-29] MEDS: PRENATAL VITAMINS W/ FOLIC ACID TABLET (FP) PO SCH (10:04)
[2021-07-29] MEDS: FAMOTIDINE 20 MG TABLET PO SCH ×2 (10:04→21:19)
[2021-07-29] MEDS: NALTREXONE HCL 50 MG TABLET PO SCH (10:04)
[2021-07-29] MEDS: hydrOXYzine PAMOATE 25 MG CAPSULE (FP) PO PRN ×2 (10:05→21:19)
[2021-07-29] MEDS: THIAMINE HCL 100 MG TABLET (FP) PO SCH (21:18)
[2021-07-29] MEDS: SUVOREXANT 10 MG TABLET PO PRN (21:19)
[2021-07-30] MEDS: FERROUS SO4 325 MG TABLET (FP) PO SCH (09:46)
[2021-07-30] MEDS: NALTREXONE HCL 50 MG TABLET PO SCH (09:46)
[2021-07-30] MEDS: FAMOTIDINE 20 MG TABLET PO SCH ×2 (09:47→21:48)
[2021-07-30] MEDS: PRENATAL VITAMINS W/ FOLIC ACID TABLET (FP) PO SCH (09:47)
[2021-07-30] MEDS: hydrOXYzine PAMOATE 25 MG CAPSULE (FP) PO PRN ×3 (09:48→21:48)
[2021-07-30] MEDS: MINERAL OIL/PETROLAT/WATER TOPICAL CREAM 113 GM JAR TP SCH (09:48)
[2021-07-30] MEDS: NICOTINE 7 MG/24 HOURS TOPICAL PATCH TD SCH (09:48)
[2021-07-30] MEDS: THIAMINE HCL 100 MG TABLET (FP) PO SCH (21:48)
[2021-07-30] MEDS: SUVOREXANT 10 MG TABLET PO PRN (21:48)
[2021-07-31] MEDS: MINERAL OIL/PETROLAT/WATER TOPICAL CREAM 113 GM JAR TP SCH (09:25)
[2021-07-31] MEDS: FERROUS SO4 325 MG TABLET (FP) PO SCH (09:25)
[2021-07-31] MEDS: NICOTINE 7 MG/24 HOURS TOPICAL PATCH TD SCH (09:26)
[2021-07-31] MEDS: NALTREXONE HCL 50 MG TABLET PO SCH (09:26)
[2021-07-31] MEDS: FAMOTIDINE 20 MG TABLET PO SCH ×2 (09:27→21:19)
[2021-07-31] MEDS: hydrOXYzine PAMOATE 25 MG CAPSULE (FP) PO PRN ×2 (09:27→21:21)
[2021-07-31] MEDS: PRENATAL VITAMINS W/ FOLIC ACID TABLET (FP) PO SCH (09:27)
[2021-07-31] MEDS: THIAMINE HCL 100 MG TABLET (FP) PO SCH (21:19)
[2021-07-31] MEDS: SUVOREXANT 20 MG TABLET PO PRN (21:20)
[2021-08-01] MEDS: FERROUS SO4 325 MG TABLET (FP) PO SCH (09:51)
[2021-08-01] MEDS: MINERAL OIL/PETROLAT/WATER TOPICAL CREAM 113 GM JAR TP SCH (09:51)
[2021-08-01] MEDS: FAMOTIDINE 20 MG TABLET PO SCH ×2 (09:51→21:14)
[2021-08-01] MEDS: PRENATAL VITAMINS W/ FOLIC ACID TABLET (FP) PO SCH (09:51)
[2021-08-01] MEDS: NICOTINE 7 MG/24 HOURS TOPICAL PATCH TD SCH (09:51)
[2021-08-01] MEDS: hydrOXYzine PAMOATE 25 MG CAPSULE (FP) PO PRN ×2 (09:52→21:14)
[2021-08-01] MEDS: NALTREXONE HCL 50 MG TABLET PO SCH (09:52)
[2021-08-01] MEDS: COLLOIDAL OATMEAL 1 BAR EACH TP PRN (09:53)
[2021-08-01] MEDS: SUVOREXANT 20 MG TABLET PO PRN (21:14)
[2021-08-01] MEDS: THIAMINE HCL 100 MG TABLET (FP) PO SCH (21:14)
[2021-08-02] MEDS: FERROUS SO4 325 MG TABLET (FP) PO SCH (10:02)
[2021-08-02] MEDS: NALTREXONE HCL 50 MG TABLET PO SCH (10:02)
[2021-08-02] MEDS: NICOTINE 7 MG/24 HOURS TOPICAL PATCH TD SCH (10:03)
[2021-08-02] MEDS: MINERAL OIL/PETROLAT/WATER TOPICAL CREAM 113 GM JAR TP SCH (10:03)
[2021-08-02] MEDS: PRENATAL VITAMINS W/ FOLIC ACID TABLET (FP) PO SCH (10:03)
[2021-08-02] MEDS: FAMOTIDINE 20 MG TABLET PO SCH ×2 (10:03→21:23)
[2021-08-02] MEDS: hydrOXYzine PAMOATE 25 MG CAPSULE (FP) PO PRN ×3 (10:05→21:23)
[2021-08-02] MEDS: THIAMINE HCL 100 MG TABLET (FP) PO SCH (21:23)
[2021-08-02] MEDS: SUVOREXANT 20 MG TABLET PO PRN (21:25)
[2021-08-03] MEDS: MINERAL OIL/PETROLAT/WATER TOPICAL CREAM 113 GM JAR TP SCH (09:30)
[2021-08-03] MEDS: FERROUS SO4 325 MG TABLET (FP) PO SCH (09:30)
[2021-08-03] MEDS: FAMOTIDINE 20 MG TABLET PO SCH ×2 (09:31→21:05)
[2021-08-03] MEDS: NICOTINE 7 MG/24 HOURS TOPICAL PATCH TD SCH (09:31)
[2021-08-03] MEDS: hydrOXYzine PAMOATE 25 MG CAPSULE (FP) PO PRN ×3 (09:32→21:07)
[2021-08-03] MEDS: PRENATAL VITAMINS W/ FOLIC ACID TABLET (FP) PO SCH (09:32)
[2021-08-03] MEDS: NALTREXONE HCL 50 MG TABLET PO SCH (09:32)
[2021-08-03] MEDS: THIAMINE HCL 100 MG TABLET (FP) PO SCH (21:05)
[2021-08-03] MEDS: SUVOREXANT 20 MG TABLET PO PRN (21:06)
[2021-08-04] MEDS: FERROUS SO4 325 MG TABLET (FP) PO SCH (09:53)
[2021-08-04] MEDS: PRENATAL VITAMINS W/ FOLIC ACID TABLET (FP) PO SCH (09:53)
[2021-08-04] MEDS: NALTREXONE HCL 50 MG TABLET PO SCH (09:53)
[2021-08-04] MEDS: FAMOTIDINE 20 MG TABLET PO SCH ×2 (09:54→21:39)
[2021-08-04] MEDS: NICOTINE 7 MG/24 HOURS TOPICAL PATCH TD SCH (09:55)
[2021-08-04] MEDS: hydrOXYzine PAMOATE 25 MG CAPSULE (FP) PO PRN ×2 (09:55→21:41)
[2021-08-04] MEDS: MINERAL OIL/PETROLAT/WATER TOPICAL CREAM 113 GM JAR TP SCH (09:55)
[2021-08-04] MEDS: THIAMINE HCL 100 MG TABLET (FP) PO SCH (21:39)
[2021-08-04] MEDS: SUVOREXANT 20 MG TABLET PO PRN (21:40)
[2021-08-05 06:48] VITALS: BP 101/75; PULSE 82; TEMP 97.5
[2021-08-05] MEDS: PRENATAL VITAMINS W/ FOLIC ACID TABLET (FP) PO SCH (09:35)
[2021-08-05] MEDS: FAMOTIDINE 20 MG TABLET PO SCH (09:35)
[2021-08-05] MEDS: FERROUS SO4 325 MG TABLET (FP) PO SCH (09:35)
[2021-08-05] MEDS: NICOTINE 7 MG/24 HOURS TOPICAL PATCH TD SCH (09:36)
[2021-08-05] MEDS: hydrOXYzine PAMOATE 25 MG CAPSULE (FP) PO PRN (09:36)
[2021-08-05] MEDS ORDERED: NALTREXONE HCL 50 MG TABLET PO SCH (10:00)
[2021-08-05] MEDS: MINERAL OIL/PETROLAT/WATER TOPICAL CREAM 113 GM JAR TP SCH (11:03)
== END 2021-08-05 09:50 | disposition home or self-care (01) | DRG 772 ==
LOC: YASAS 14:15 → Y3E 14:16
PROVIDERS: ADMIT Allergy & Immunology; ATTEND Allergy & Immunology
PROC: HZ42ZZZ Group Counseling for Substance Abuse Treatment, Cognitive-Behavioral (ICD-10-PCS; principal; 2021-07-08)
DX: F10.20 Alcohol dependence, uncomplicated (principal); F17.210 Nicotine dependence, cigarettes, uncomplicated; F10.282 Alcohol dependence with alcohol-induced sleep disorder; F10.24 Alcohol dependence with alcohol-induced mood disorder; F32.A Depression, unspecified; D64.9 Anemia, unspecified; K21.9 Gastro-esophageal reflux disease without esophagitis; R79.89 Other specified abnormal findings of blood chemistry; R74.01 Elevation of levels of liver transaminase levels; Z87.19 Personal history of other diseases of the digestive system; Z63.6 Dependent relative needing care at home; Z68.1 Body mass index [BMI] 19.9 or less, adult; Z91.011 Allergy to milk products
CPT/HCPCS: 36415; 80053; 82962; 84132; 85027; C9803; J0475; U0003; U0005

== ENCOUNTER 2021-11-12 16:27 | Inpatient (IN) | payer OTHER ==
[2021-11-12 21:18] VITALS: BMI 17.2
[2021-11-12] MEDS ORDERED: hydrOXYzine PAMOATE 25 MG CAPSULE (FP) PO PRN (21:38)
[2021-11-12] MEDS ORDERED: LOPERAMIDE HCL 2 MG CAPSULE PO PRN (21:38)
[2021-11-12] MEDS ORDERED: ACETAMINOPHEN 325 MG TABLET (FP) PO PRN ×2 (21:38)
[2021-11-12] MEDS ORDERED: MAGNESIUM HYDROX 2400MG/30ML ORAL SUSPENSION 30 ML CUP PO PRN (21:38)
[2021-11-12] MEDS ORDERED: MAGNESIUM CITRATE 300 ML BOTTLE PO PRN (21:38)
[2021-11-12] MEDS ORDERED: MAG HYDROX/AL HYDROX/SIMETH 30 ML UNIT-DOSE CUP PO PRN (21:38)
[2021-11-12] MEDS ORDERED: BENZOCAINE/MENTHOL (CHLORASEPTIC ) LOZENGE MM PRN (21:38)
[2021-11-12] MEDS ORDERED: IBUPROFEN 600 MG TABLET (FP) PO PRN (21:38)
[2021-11-12] MEDS ORDERED: BISMUTH SUBSALICYLATE 524 MG/30 ML PO PRN (21:38)
[2021-11-13] MEDS ORDERED: diazePAM 5 MG TABLET ONE (01:54)
[2021-11-13] MEDS: diazePAM 5 MG TABLET PO SCH ×5 (01:56→22:51)
[2021-11-13] MEDS ORDERED: ONDANSETRON *ODT* 4 MG TABLET ONE (02:13)
[2021-11-13] MEDS: ONDANSETRON *ODT* 4 MG TABLET SL PRN ×3 (02:14→22:41)
[2021-11-13] MEDS: FAMOTIDINE 20 MG TABLET PO SCH ×3 (02:45→22:50)
[2021-11-13] MEDS: THIAMINE HCL 100 MG TABLET (FP) PO SCH ×2 (02:45→22:50)
[2021-11-13 10:23] LABS: HEMATOCRIT 33.9 % (35.4-49); HEMOGLOBIN 10.9 GM/dL (11.7-16.9); MCH 28.8 pg (25.7-33.7); MCHC 32.1 g/dl (32.0-35.9); MEAN PLT VOLUME 7.5 fl (7.5-11.1); PLATELET COUNT 414 10^3/uL (134-434); RBC 3.77 M/mm3 (4.00-5.60); RDW 18.3 % (11.9-15.9); WHITE BLOOD COUNT 3.8 K/mm3 (4.0-10.0)
[2021-11-13] MEDS: PRENATAL VITAMINS W/ FOLIC ACID TABLET (FP) PO SCH (10:35)
[2021-11-13] MEDS: METHOCARBAMOL 500 MG TABLET PO PRN ×2 (10:36→15:50)
[2021-11-13 10:42] LABS: CALCIUM 8.4 mg/dL (8.5-10.1)
[2021-11-13 10:43] LABS: ALBUMIN 2.9 g/dl (3.4-5.0); BLOOD UREA NITROGEN 7.8 mg/dL (7-18)
[2021-11-13 10:47] LABS: CREATININE 0.9 mg/dL (0.55-1.3)
[2021-11-13 10:48] LABS: BILIRUBIN,TOTAL 0.4 mg/dL (0.2-1)
[2021-11-13] MEDS: diazePAM 5 MG TABLET PO PRN (15:50)
[2021-11-13] MEDS: DICYCLOMINE HCL 10 MG CAPSULE PO PRN (18:09)
[2021-11-13] MEDS: MELATONIN 5 MG TABLETS PO PRN (22:50)
[2021-11-14] MEDS: diazePAM 5 MG TABLET PO SCH ×3 (05:39→22:25)
[2021-11-14] MEDS: FAMOTIDINE 20 MG TABLET PO SCH ×2 (10:45→22:25)
[2021-11-14] MEDS: PRENATAL VITAMINS W/ FOLIC ACID TABLET (FP) PO SCH (10:45)
[2021-11-14 12:11] LABS: AMYLASE 130 U/L (25-115); GLUCOSE,FASTING 87 mg/dL (74-106); LIPASE 365 U/L (73-393)
[2021-11-14] MEDS: FOLIC ACID 1 MG TABLET (FP) PO SCH (15:06)
[2021-11-14] MEDS: GABAPENTIN 300 MG CAPSULE PO SCH ×2 (15:07→22:25)
[2021-11-14] MEDS: LIPASE/PROTEASE/AMYLASE 6,000 UNIT CAPSULE PO SCH (17:54)
[2021-11-14] MEDS: GABAPENTIN 100 MG CAPSULE PO SCH (17:54)
[2021-11-14] MEDS: DICYCLOMINE HCL 10 MG CAPSULE PO PRN (17:58)
[2021-11-14] MEDS: ONDANSETRON *ODT* 4 MG TABLET SL PRN (17:58)
[2021-11-14] MEDS: THIAMINE HCL 100 MG TABLET (FP) PO SCH (22:25)
[2021-11-14] MEDS: MELATONIN 5 MG TABLETS PO PRN (22:27)
[2021-11-15] MEDS: GABAPENTIN 300 MG CAPSULE PO SCH ×2 (05:34→15:47)
[2021-11-15] MEDS: diazePAM 5 MG TABLET PO SCH ×2 (05:35→20:57)
[2021-11-15] MEDS: LIPASE/PROTEASE/AMYLASE 6,000 UNIT CAPSULE PO SCH ×3 (06:51→20:57)
[2021-11-15 09:15] VITALS: BP 120/88; PULSE 89; TEMP 98.2
[2021-11-15] MEDS ORDERED: MAGNESIUM OXIDE 400 MG TABLET (FP) PO SCH (10:00)
[2021-11-15] MEDS: FOLIC ACID 1 MG TABLET (FP) PO SCH (10:14)
[2021-11-15] MEDS: FAMOTIDINE 20 MG TABLET PO SCH (10:14)
[2021-11-15] MEDS: PRENATAL VITAMINS W/ FOLIC ACID TABLET (FP) PO SCH (10:15)
[2021-11-15] MEDS: diazePAM 5 MG TABLET PO PRN (10:15)
[2021-11-15] MEDS: GABAPENTIN 100 MG CAPSULE PO SCH (20:57)
[2021-11-16] MEDS ORDERED: diazePAM 5 MG TABLET PO ONE (06:00)
== END 2021-11-15 21:12 | disposition short-term general hospital (02) | DRG 775 ==
LOC: YASAS 16:27 → Y3N 11-13 01:46
PROVIDERS: ADMIT Allergy & Immunology; ATTEND Surgery
PROC: HZ2ZZZZ Detoxification Services for Substance Abuse Treatment (ICD-10-PCS; principal; 2021-11-13)
DX: F10.230 Alcohol dependence with withdrawal, uncomplicated (principal); F12.10 Cannabis abuse, uncomplicated; F17.210 Nicotine dependence, cigarettes, uncomplicated; E87.0 Hyperosmolality and hypernatremia; R10.13 Epigastric pain; R10.12 Left upper quadrant pain; Z87.19 Personal history of other diseases of the digestive system
CPT/HCPCS: 36415; 80053; 82150; 82947; 83036; 83690; 85027; 86780; 87811; C9803-CS; Q0162; U0003; U0005

== ENCOUNTER 2021-11-15 11:17 | Inpatient (IN) | payer OTHER ==
[2021-11-15 11:32] VITALS: BMI 20.2
[2021-11-15] MEDS ORDERED: ACETAMINOPHEN 1000 MG/100 ML BAG IVPB ONE ×2 (12:26→19:44)
[2021-11-15] MEDS ORDERED: LACTATED RINGERS SOLUTION 1000 ML INFUS.BAG IV ONE ×2 (12:26→20:00)
[2021-11-15] MEDS ORDERED: FAMOTIDINE 20 MG/50 ML IVPB 20 MG/50 ML MG IVPB ONE ×2 (12:26→13:16)
[2021-11-15] MEDS ORDERED: ACETAMINOPHEN INJECTION 100 ML IVPB ONE ×2 (13:16→19:48)
[2021-11-15 13:31] LABS: BASO % 0.4 % (0-2.0); EOS % 0.9 % (0-4.5); HEMATOCRIT 36.5 % (35.4-49); HEMOGLOBIN 11.8 GM/dL (11.7-16.9); LYMPH % 13.8 % (8-40); MCH 28.9 pg (25.7-33.7); MCHC 32.2 g/dl (32.0-35.9); MEAN CELL VOLUME 89.8 fl (80-96); MEAN PLT VOLUME 7.7 fl (7.5-11.1); MONO % 6.6 % (3.8-10.2); NEUT % 78.3 % (42.8-82.8); PLATELET COUNT 302 10^3/uL (134-434); RBC 4.07 M/mm3 (4.00-5.60); RDW 18.1 % (11.9-15.9); RETICULOCYTES 0.88 % (0.5-1.5); WHITE BLOOD COUNT 8.4 K/mm3 (4.0-10.0)
[2021-11-15 13:55] LABS: PH,URINE >= 9.0 (5.0-8.0); URINE APPEARANCE CLEAR; URINE BILIRUBIN NEGATIVE (NEGATIVE); URINE COLOR YELLOW; URINE GLUCOSE (UA) NEGATIVE (NEGATIVE); URINE KETONE NEGATIVE (NEGATIVE); URINE LEUK ESTERASE NEGATIVE (NEGATIVE); URINE NITRITE NEGATIVE (NEGATIVE); URINE PROTEIN NEGATIVE (NEGATIVE); URINE UROBILINOGEN 0.2 mg/dL (0.2-1.0)
[2021-11-15 14:01] LABS: ALBUMIN 3.3 g/dl (3.4-5.0); BLOOD UREA NITROGEN 3.3 mg/dL (7-18)
[2021-11-15 14:04] LABS: PHOSPHOROUS 2.5 mg/dL (2.5-4.9)
[2021-11-15 14:05] LABS: BILIRUBIN,TOTAL 0.6 mg/dL (0.2-1); TOT PROT 7.5 g/dl (6.4-8.2)
[2021-11-15 21:52] LABS: TRIGLYCERIDES 42 mg/dL (0-150)
[2021-11-15 22:10] LABS: CHOLESTEROL 100 mg/dL (50-200)
[2021-11-15] MEDS: LACTATED RINGERS SOLUTION 1,000 ML IV SCH (22:30)
[2021-11-15] MEDS ORDERED: MELATONIN 5 MG TABLETS PO ONE (23:31)
[2021-11-16] MEDS: ENOXAPARIN NA (PORCINE) 40 MG/0.4 ML DISP.SYRIN SQ SCH (10:53)
[2021-11-16] MEDS: LACTATED RINGERS SOLUTION 1,000 ML IV SCH ×2 (10:53→22:00)
[2021-11-16] MEDS ORDERED: FOLIC ACID INJECTION - 1 MG, THIAMINE HCL 100 MG, MULTIVIT INJECTION ADULT 10 ML in SOD... IVPB ONE (11:32)
[2021-11-16] MEDS: FOLIC ACID 1 MG TABLET (FP) PO SCH (11:48)
[2021-11-16 13:01] LABS: BASO % 0.8 % (0-2.0); EOS % 5.6 % (0-4.5); HEMATOCRIT 35.8 % (35.4-49); HEMOGLOBIN 11.5 GM/dL (11.7-16.9); LYMPH % 31.3 % (8-40); MCHC 32.2 g/dl (32.0-35.9); MEAN PLT VOLUME 7.8 fl (7.5-11.1); NEUT % 53.3 % (42.8-82.8); PLATELET COUNT 250 10^3/uL (134-434); RBC 3.98 M/mm3 (4.00-5.60); RDW 18.3 % (11.9-15.9); WHITE BLOOD COUNT 4.6 K/mm3 (4.0-10.0)
[2021-11-16 13:20] LABS: CALCIUM 8.9 mg/dL (8.5-10.1)
[2021-11-16 13:21] LABS: BLOOD UREA NITROGEN 4.8 mg/dL (7-18); MAGNESIUM 1.5 mg/dL (1.8-2.4)
[2021-11-16 13:24] LABS: CREATININE 0.8 mg/dL (0.55-1.3)
[2021-11-16 13:26] LABS: BILIRUBIN,TOTAL 0.6 mg/dL (0.2-1); TOT PROT 6.8 g/dl (6.4-8.2)
[2021-11-17] MEDS: LACTATED RINGERS SOLUTION 1,000 ML IV SCH ×3 (04:00→21:41)
[2021-11-17] MEDS: ENOXAPARIN NA (PORCINE) 40 MG/0.4 ML DISP.SYRIN SQ SCH (09:45)
[2021-11-17] MEDS: FOLIC ACID 1 MG TABLET (FP) PO SCH (09:45)
[2021-11-17 10:28] LABS: HEMATOCRIT 34.6 % (35.4-49); HEMOGLOBIN 11.2 GM/dL (11.7-16.9); MCH 29.3 pg (25.7-33.7); MCHC 32.5 g/dl (32.0-35.9); MEAN CELL VOLUME 90.4 fl (80-96); MEAN PLT VOLUME 8.4 fl (7.5-11.1); PLATELET COUNT 228 10^3/uL (134-434); RBC 3.83 M/mm3 (4.00-5.60); RDW 18.2 % (11.9-15.9)
[2021-11-17 11:02] LABS: CALCIUM 8.2 mg/dL (8.5-10.1)
[2021-11-17 11:03] LABS: BLOOD UREA NITROGEN 4.9 mg/dL (7-18)
[2021-11-17 11:04] LABS: MAGNESIUM 1.5 mg/dL (1.8-2.4)
[2021-11-17 11:07] LABS: CREATININE 0.7 mg/dL (0.55-1.3)
[2021-11-17] MEDS ORDERED: MAGNESIUM OXIDE 400 MG TABLET (FP) PO ONE (15:20)
[2021-11-17] MEDS: MELATONIN 5 MG TABLETS PO SCH (21:40)
[2021-11-18] MEDS: FOLIC ACID 1 MG TABLET (FP) PO SCH (09:45)
[2021-11-18] MEDS: ENOXAPARIN NA (PORCINE) 40 MG/0.4 ML DISP.SYRIN SQ SCH (09:45)
[2021-11-18] MEDS ORDERED: FOLIC ACID 1 MG TABLET (FP) PO SCH (10:30)
[2021-11-18] MEDS: FAMOTIDINE 20 MG TABLET PO SCH ×2 (10:38→21:13)
[2021-11-18] MEDS: GABAPENTIN 300 MG CAPSULE PO SCH ×3 (10:38→21:13)
[2021-11-18] MEDS: LACTATED RINGERS SOLUTION 1,000 ML/1,000 ML INFUS.BAG IV SCH (10:38)
[2021-11-18] MEDS ORDERED: MAGNESIUM OXIDE 400 MG TABLET (FP) PO ONE (16:39)
[2021-11-18] MEDS: MELATONIN 5 MG TABLETS PO SCH (21:13)
[2021-11-18] MEDS: THIAMINE HCL 100 MG TABLET (FP) PO SCH (21:13)
[2021-11-19] MEDS: GABAPENTIN 300 MG CAPSULE PO SCH ×3 (05:43→21:34)
[2021-11-19] MEDS: FAMOTIDINE 20 MG TABLET PO SCH ×2 (09:17→21:34)
[2021-11-19] MEDS: ENOXAPARIN NA (PORCINE) 40 MG/0.4 ML DISP.SYRIN SQ SCH (09:17)
[2021-11-19] MEDS: THIAMINE HCL 100 MG TABLET (FP) PO SCH ×2 (09:17→21:34)
[2021-11-19] MEDS: FOLIC ACID 1 MG TABLET (FP) PO SCH (09:17)
[2021-11-19] MEDS: LACTATED RINGERS SOLUTION 1,000 ML/1,000 ML INFUS.BAG IV SCH ×2 (09:17→14:04)
[2021-11-19] MEDS: MULTIVITAMINS THER W-MINERALS COMBO TABLET (FP) PO SCH (09:17)
[2021-11-19 11:17] LABS: HEMATOCRIT 30.4 % (35.4-49); MCH 29.4 pg (25.7-33.7); MCHC 32.9 g/dl (32.0-35.9); MEAN CELL VOLUME 89.5 fl (80-96); MEAN PLT VOLUME 8.8 fl (7.5-11.1); PLATELET COUNT 192 10^3/uL (134-434); RBC 3.39 M/mm3 (4.00-5.60); RDW 18.6 % (11.9-15.9); WHITE BLOOD COUNT 4.3 K/mm3 (4.0-10.0)
[2021-11-19 11:53] LABS: CHLORIDE 105 mmol/L (98-107); SODIUM 141 mmol/L (136-145)
[2021-11-19 11:56] LABS: CALCIUM 8.2 mg/dL (8.5-10.1)
[2021-11-19 11:57] LABS: ANION GAP 8 MMOL/L (8-16); CO2 28 mmol/L (21-32); GLUCOSE,RANDOM 118 mg/dL (74-106); MAGNESIUM 1.5 mg/dL (1.8-2.4)
[2021-11-19 12:00] LABS: CREATININE 0.6 mg/dL (0.55-1.3)
[2021-11-19] MEDS ORDERED: MAGNESIUM OXIDE 400 MG TABLET (FP) PO ONE (12:02)
[2021-11-19 12:05] LABS: BLOOD UREA NITROGEN 2.6 mg/dL (7-18)
[2021-11-19] MEDS ORDERED: POTASSIUM CHLORIDE TABS 20 MEQ TABLET.ER (FP) PO ONE (12:30)
[2021-11-19] MEDS ORDERED: MAGNESIUM 2GM/50ML STERILE WATER IVPB IVPB ONE (12:30)
[2021-11-19] MEDS ORDERED: MAGNESIUM SULF 50% (8.12 MEQ/2 ML-1 GM VIAL) IVPB ONE (13:15)
[2021-11-19] MEDS: KCL 10 MEQ IVPB 10 MEQ/100 ML INFUS.BAG IVPB SCH ×3 (14:05→17:09)
[2021-11-19] MEDS: MELATONIN 5 MG TABLETS PO SCH (21:34)
[2021-11-20] MEDS: LACTATED RINGERS SOLUTION 1,000 ML/1,000 ML INFUS.BAG IV SCH (04:41)
[2021-11-20] MEDS: GABAPENTIN 300 MG CAPSULE PO SCH ×3 (06:26→21:27)
[2021-11-20] MEDS: THIAMINE HCL 100 MG TABLET (FP) PO SCH ×2 (09:12→21:14)
[2021-11-20] MEDS: ENOXAPARIN NA (PORCINE) 40 MG/0.4 ML DISP.SYRIN SQ SCH (09:12)
[2021-11-20] MEDS: MULTIVITAMINS THER W-MINERALS COMBO TABLET (FP) PO SCH (09:12)
[2021-11-20] MEDS: FOLIC ACID 1 MG TABLET (FP) PO SCH (09:12)
[2021-11-20] MEDS: FAMOTIDINE 20 MG TABLET PO SCH ×2 (09:12→21:27)
[2021-11-20 11:25] LABS: HEMATOCRIT 38.7 % (35.4-49); HEMOGLOBIN 12.5 GM/dL (11.7-16.9); MCH 29.5 pg (25.7-33.7); MCHC 32.4 g/dl (32.0-35.9); MEAN CELL VOLUME 90.9 fl (80-96); MEAN PLT VOLUME 9.1 fl (7.5-11.1); PLATELET COUNT 172 10^3/uL (134-434); RBC 4.26 M/mm3 (4.00-5.60); RDW 18.9 % (11.9-15.9); WHITE BLOOD COUNT 3.2 K/mm3 (4.0-10.0)
[2021-11-20 11:49] LABS: CHLORIDE 105 mmol/L (98-107); SODIUM 140 mmol/L (136-145)
[2021-11-20 12:02] LABS: ALBUMIN 3.3 g/dl (3.4-5.0); ANION GAP 5 MMOL/L (8-16); CO2 30 mmol/L (21-32); GLUCOSE,RANDOM 93 mg/dL (74-106)
[2021-11-20 12:05] LABS: CREATININE 0.7 mg/dL (0.55-1.3); PHOSPHOROUS 3.2 mg/dL (2.5-4.9); SGOT/AST 29 U/L (15-37); SGPT/ALT 20 U/L (13-61); TOT PROT 7.1 g/dl (6.4-8.2)
[2021-11-20 12:07] LABS: BILIRUBIN,TOTAL 0.6 mg/dL (0.2-1)
[2021-11-20 12:08] LABS: ALK PHOS 81 U/L (45-117); BLOOD UREA NITROGEN 2.4 mg/dL (7-18); CALCIUM 9.6 mg/dL (8.5-10.1)
[2021-11-20] MEDS: MELATONIN 5 MG TABLETS PO SCH (21:14)
[2021-11-21] MEDS: GABAPENTIN 300 MG CAPSULE PO SCH ×2 (06:46→14:51)
[2021-11-21] MEDS: FOLIC ACID 1 MG TABLET (FP) PO SCH (09:30)
[2021-11-21] MEDS: MULTIVITAMINS THER W-MINERALS COMBO TABLET (FP) PO SCH (09:30)
[2021-11-21] MEDS: THIAMINE HCL 100 MG TABLET (FP) PO SCH (09:30)
[2021-11-21] MEDS: ENOXAPARIN NA (PORCINE) 40 MG/0.4 ML DISP.SYRIN SQ SCH (09:30)
[2021-11-21] MEDS: FAMOTIDINE 20 MG TABLET PO SCH (09:30)
[2021-11-21 10:52] LABS: HEMATOCRIT 35.1 % (35.4-49); HEMOGLOBIN 11.6 GM/dL (11.7-16.9); MCH 29.6 pg (25.7-33.7); MCHC 32.9 g/dl (32.0-35.9); MEAN PLT VOLUME 9.2 fl (7.5-11.1); PLATELET COUNT 221 10^3/uL (134-434); RDW 18.9 % (11.9-15.9); WHITE BLOOD COUNT 3.6 K/mm3 (4.0-10.0)
[2021-11-21 11:12] LABS: CHLORIDE 105 mmol/L (98-107); SODIUM 143 mmol/L (136-145)
[2021-11-21 11:16] LABS: ALBUMIN 3.2 g/dl (3.4-5.0); ANION GAP 8 MMOL/L (8-16); CO2 31 mmol/L (21-32); MAGNESIUM 1.8 mg/dL (1.8-2.4)
[2021-11-21 11:18] LABS: CREATININE 0.8 mg/dL (0.55-1.3); PHOSPHOROUS 4.2 mg/dL (2.5-4.9); SGPT/ALT 19 U/L (13-61)
[2021-11-21 11:20] LABS: BILIRUBIN,TOTAL 0.7 mg/dL (0.2-1)
[2021-11-21 11:21] LABS: ALK PHOS 80 U/L (45-117); SGOT/AST 27 U/L (15-37)
[2021-11-21 11:23] LABS: BLOOD UREA NITROGEN 2.4 mg/dL (7-18); GLUCOSE,RANDOM 83 mg/dL (74-106)
[2021-11-21 14:30] VITALS: BP 113/76; PULSE 71; TEMP 98
== END 2021-11-21 15:43 | disposition other institution (70) | DRG 282 ==
LOC: JER 11:17 → JERBED 17:40 → J6S 22:23
PROVIDERS: ADMIT Internal Medicine; ATTEND Internal Medicine
PROC: HZ2ZZZZ Detoxification Services for Substance Abuse Treatment (ICD-10-PCS; principal; 2021-11-15)
DX: K85.20 Alcohol induced acute pancreatitis without necrosis or infection (principal); E83.42 Hypomagnesemia; F10.20 Alcohol dependence, uncomplicated; F10.230 Alcohol dependence with withdrawal, uncomplicated; F17.200 Nicotine dependence, unspecified, uncomplicated; K21.9 Gastro-esophageal reflux disease without esophagitis; R63.0 Anorexia; E87.6 Hypokalemia
CPT/HCPCS: 0241U-QW; 36415; 71045-TC-FY; 74177-TC; 80048; 80053; 80307; 81003; 82272; 82465; 83550; 83690; 83735; 84100; 84478; 84484; 85025; 85027; 85045; 86850; 86900; 86901; 87086; 93005; 93010; 99285-25; Q9967

== ENCOUNTER 2021-11-21 15:49 | Inpatient (IN) | payer OTHER ==
[2021-11-21 16:37] VITALS: BMI 17.2
[2021-11-21] MEDS ORDERED: IBUPROFEN 400 MG TABLET (FP) PO PRN (17:01)
[2021-11-21] MEDS ORDERED: LOPERAMIDE HCL 2 MG CAPSULE PO PRN (17:01)
[2021-11-21] MEDS ORDERED: NICOTINE 10 MG CARTRIDGE (INHALER) IH PRN (17:01)
[2021-11-21] MEDS ORDERED: P-EPHED 60MG/TRIPROLIDI 2.5MG TABLET PO PRN (17:01)
[2021-11-21] MEDS ORDERED: MAGNESIUM CITRATE 300 ML BOTTLE PO PRN (17:01)
[2021-11-21] MEDS: hydrOXYzine PAMOATE 25 MG CAPSULE (FP) PO SCH ×2 (21:08→21:10)
[2021-11-21] MEDS: FAMOTIDINE 20 MG TABLET PO SCH (21:10)
[2021-11-21] MEDS: GABAPENTIN 300 MG CAPSULE PO SCH (21:10)
[2021-11-21] MEDS ORDERED: THIAMINE HCL 100 MG TABLET (FP) PO SCH (22:00)
[2021-11-21] MEDS ORDERED: MELATONIN 5 MG TABLETS PO SCH (22:00)
[2021-11-22] MEDS: GABAPENTIN 300 MG CAPSULE PO SCH ×3 (06:40→21:34)
[2021-11-22] MEDS: hydrOXYzine PAMOATE 25 MG CAPSULE (FP) PO SCH ×5 (06:40→21:33)
[2021-11-22] MEDS: LIPASE/PROTEASE/AMYLASE 6,000 UNIT CAPSULE PO SCH ×3 (07:46→18:06)
[2021-11-22] MEDS: FAMOTIDINE 20 MG TABLET PO SCH ×2 (10:00→21:34)
[2021-11-22] MEDS: PRENATAL VITAMINS W/ FOLIC ACID TABLET (FP) PO SCH (10:00)
[2021-11-22] MEDS: NICOTINE 7 MG/24 HOURS TOPICAL PATCH TD SCH (10:01)
[2021-11-22 10:21] LABS: HEMATOCRIT 37.3 % (35.4-49); MCH 29.3 pg (25.7-33.7); MCHC 32.2 g/dl (32.0-35.9); MEAN CELL VOLUME 91.1 fl (80-96); MEAN PLT VOLUME 10.1 fl (7.5-11.1); PLATELET COUNT 230 10^3/uL (134-434); WHITE BLOOD COUNT 3.8 K/mm3 (4.0-10.0)
[2021-11-22] MEDS ORDERED: PATIENT'S OWN MEDICATION (NON-FORMULARY) (Thiamine Mononitrate [Vitamin B-1] 100 MG Tablet PO SCH (10:30)
[2021-11-22 10:32] LABS: ALBUMIN 3.8 g/dl (3.4-5.0); BLOOD UREA NITROGEN 3.3 mg/dL (7-18); CALCIUM 9.5 mg/dL (8.5-10.1)
[2021-11-22 10:35] LABS: CREATININE 1.1 mg/dL (0.55-1.3)
[2021-11-22 10:37] LABS: BILIRUBIN,TOTAL 0.6 mg/dL (0.2-1); TOT PROT 7.7 g/dl (6.4-8.2)
[2021-11-22] MEDS: FOLIC ACID 1 MG TABLET (FP) PO SCH (11:42)
[2021-11-22] MEDS ORDERED: LIPASE/PROTEASE/AMYLASE 6,000 UNIT CAPSULE PO SCH (13:00)
[2021-11-22 13:51] LABS: SYPHILIS W/ RPR CONF NON-REACTIVE (NONREACTIVE)
[2021-11-22 16:08] LABS: PH,URINE 7.5 (5.0-8.0); URINE APPEARANCE CLOUDY; URINE BILIRUBIN 1+ (NEGATIVE); URINE COLOR DK YELLOW; URINE GLUCOSE (UA) NEGATIVE (NEGATIVE); URINE KETONE TRACE (NEGATIVE); URINE LEUK ESTERASE NEGATIVE (NEGATIVE); URINE NITRITE NEGATIVE (NEGATIVE); URINE PROTEIN TRACE (NEGATIVE)
[2021-11-22] MEDS: MELATONIN 5 MG TABLETS PO SCH (21:33)
[2021-11-22] MEDS: THIAMINE HCL 100 MG TABLET (FP) PO SCH (21:33)
[2021-11-23] MEDS: GABAPENTIN 300 MG CAPSULE PO SCH ×3 (06:46→22:25)
[2021-11-23] MEDS: hydrOXYzine PAMOATE 25 MG CAPSULE (FP) PO SCH ×5 (06:47→22:25)
[2021-11-23] MEDS: LIPASE/PROTEASE/AMYLASE 6,000 UNIT CAPSULE PO SCH ×3 (07:02→17:03)
[2021-11-23] MEDS: PRENATAL VITAMINS W/ FOLIC ACID TABLET (FP) PO SCH (09:47)
[2021-11-23] MEDS: THIAMINE HCL 100 MG TABLET (FP) PO SCH ×2 (09:47→22:25)
[2021-11-23] MEDS: FOLIC ACID 1 MG TABLET (FP) PO SCH (09:47)
[2021-11-23] MEDS: FAMOTIDINE 20 MG TABLET PO SCH ×2 (09:47→22:25)
[2021-11-23] MEDS: NICOTINE 7 MG/24 HOURS TOPICAL PATCH TD SCH (09:48)
[2021-11-23] MEDS: MELATONIN 5 MG TABLETS PO SCH (22:25)
[2021-11-24] MEDS: GABAPENTIN 300 MG CAPSULE PO SCH ×3 (06:15→21:41)
[2021-11-24] MEDS: hydrOXYzine PAMOATE 25 MG CAPSULE (FP) PO SCH ×5 (06:15→21:41)
[2021-11-24] MEDS: LIPASE/PROTEASE/AMYLASE 6,000 UNIT CAPSULE PO SCH ×3 (07:42→17:19)
[2021-11-24] MEDS: PRENATAL VITAMINS W/ FOLIC ACID TABLET (FP) PO SCH (09:36)
[2021-11-24] MEDS: THIAMINE HCL 100 MG TABLET (FP) PO SCH ×2 (09:36→21:41)
[2021-11-24] MEDS: FAMOTIDINE 20 MG TABLET PO SCH ×2 (09:36→21:40)
[2021-11-24] MEDS: FOLIC ACID 1 MG TABLET (FP) PO SCH (09:36)
[2021-11-24] MEDS: NICOTINE 7 MG/24 HOURS TOPICAL PATCH TD SCH (09:37)
[2021-11-24] MEDS: MELATONIN 5 MG TABLETS PO SCH (21:41)
[2021-11-25] MEDS: hydrOXYzine PAMOATE 25 MG CAPSULE (FP) PO SCH ×5 (06:25→21:36)
[2021-11-25] MEDS: GABAPENTIN 300 MG CAPSULE PO SCH ×3 (06:25→21:36)
[2021-11-25] MEDS: LIPASE/PROTEASE/AMYLASE 6,000 UNIT CAPSULE PO SCH ×3 (08:12→17:51)
[2021-11-25] MEDS: FAMOTIDINE 20 MG TABLET PO SCH ×2 (10:06→21:36)
[2021-11-25] MEDS: NICOTINE 7 MG/24 HOURS TOPICAL PATCH TD SCH (10:06)
[2021-11-25] MEDS: FOLIC ACID 1 MG TABLET (FP) PO SCH (10:06)
[2021-11-25] MEDS: THIAMINE HCL 100 MG TABLET (FP) PO SCH ×2 (10:06→21:36)
[2021-11-25] MEDS: PRENATAL VITAMINS W/ FOLIC ACID TABLET (FP) PO SCH (10:07)
[2021-11-25] MEDS: COLLOIDAL OATMEAL 1 BAR EACH TP PRN (14:21)
[2021-11-25] MEDS: MELATONIN 5 MG TABLETS PO SCH (21:36)
[2021-11-26] MEDS: GABAPENTIN 300 MG CAPSULE PO SCH ×3 (06:36→21:24)
[2021-11-26] MEDS: hydrOXYzine PAMOATE 25 MG CAPSULE (FP) PO SCH ×5 (06:36→21:24)
[2021-11-26] MEDS: MAGNESIUM HYDROX 2400MG/30ML ORAL SUSPENSION 30 ML CUP PO PRN (06:46)
[2021-11-26] MEDS: LIPASE/PROTEASE/AMYLASE 6,000 UNIT CAPSULE PO SCH ×3 (07:11→18:01)
[2021-11-26] MEDS: FOLIC ACID 1 MG TABLET (FP) PO SCH (09:29)
[2021-11-26] MEDS: NICOTINE 7 MG/24 HOURS TOPICAL PATCH TD SCH (09:29)
[2021-11-26] MEDS: PRENATAL VITAMINS W/ FOLIC ACID TABLET (FP) PO SCH (09:30)
[2021-11-26] MEDS: THIAMINE HCL 100 MG TABLET (FP) PO SCH ×2 (09:30→21:24)
[2021-11-26] MEDS: FAMOTIDINE 20 MG TABLET PO SCH ×2 (09:30→21:24)
[2021-11-26] MEDS: MELATONIN 5 MG TABLETS PO SCH (21:24)
[2021-11-27] MEDS: GABAPENTIN 300 MG CAPSULE PO SCH ×3 (06:21→21:29)
[2021-11-27] MEDS: hydrOXYzine PAMOATE 25 MG CAPSULE (FP) PO SCH ×5 (06:22→21:29)
[2021-11-27] MEDS: LIPASE/PROTEASE/AMYLASE 6,000 UNIT CAPSULE PO SCH ×3 (07:07→17:59)
[2021-11-27] MEDS: THIAMINE HCL 100 MG TABLET (FP) PO SCH ×2 (09:51→21:29)
[2021-11-27] MEDS: NICOTINE 7 MG/24 HOURS TOPICAL PATCH TD SCH (09:51)
[2021-11-27] MEDS: FOLIC ACID 1 MG TABLET (FP) PO SCH (09:51)
[2021-11-27] MEDS: PRENATAL VITAMINS W/ FOLIC ACID TABLET (FP) PO SCH (09:52)
[2021-11-27] MEDS: FAMOTIDINE 20 MG TABLET PO SCH ×2 (09:52→21:29)
[2021-11-27] MEDS: MAGNESIUM HYDROX 2400MG/30ML ORAL SUSPENSION 30 ML CUP PO PRN (09:54)
[2021-11-27] MEDS: QUEtiapine FUMARATE 25 MG TABLET PO SCH (11:46)
[2021-11-27] MEDS: QUEtiapine FUMARATE 50 MG TABLET PO SCH (21:30)
[2021-11-28] MEDS: GABAPENTIN 300 MG CAPSULE PO SCH ×3 (05:58→21:30)
[2021-11-28] MEDS: hydrOXYzine PAMOATE 25 MG CAPSULE (FP) PO SCH ×5 (06:25→21:30)
[2021-11-28] MEDS: LIPASE/PROTEASE/AMYLASE 6,000 UNIT CAPSULE PO SCH ×3 (07:04→17:56)
[2021-11-28] MEDS: QUEtiapine FUMARATE 25 MG TABLET PO SCH (10:20)
[2021-11-28] MEDS: FOLIC ACID 1 MG TABLET (FP) PO SCH (10:20)
[2021-11-28] MEDS: NICOTINE 7 MG/24 HOURS TOPICAL PATCH TD SCH (10:20)
[2021-11-28] MEDS: PRENATAL VITAMINS W/ FOLIC ACID TABLET (FP) PO SCH (10:20)
[2021-11-28] MEDS: FAMOTIDINE 20 MG TABLET PO SCH ×2 (10:20→21:30)
[2021-11-28] MEDS: THIAMINE HCL 100 MG TABLET (FP) PO SCH ×2 (10:22→21:31)
[2021-11-28] MEDS: QUEtiapine FUMARATE 50 MG TABLET PO SCH (21:31)
[2021-11-29] MEDS: GABAPENTIN 300 MG CAPSULE PO SCH ×3 (06:16→21:38)
[2021-11-29] MEDS: hydrOXYzine PAMOATE 25 MG CAPSULE (FP) PO SCH ×5 (06:16→21:38)
[2021-11-29] MEDS: LIPASE/PROTEASE/AMYLASE 6,000 UNIT CAPSULE PO SCH ×3 (07:11→17:02)
[2021-11-29] MEDS: QUEtiapine FUMARATE 25 MG TABLET PO SCH (09:49)
[2021-11-29] MEDS: THIAMINE HCL 100 MG TABLET (FP) PO SCH ×2 (09:49→21:38)
[2021-11-29] MEDS: FOLIC ACID 1 MG TABLET (FP) PO SCH (09:49)
[2021-11-29] MEDS: PRENATAL VITAMINS W/ FOLIC ACID TABLET (FP) PO SCH (09:49)
[2021-11-29] MEDS: FAMOTIDINE 20 MG TABLET PO SCH ×2 (09:49→21:38)
[2021-11-29] MEDS: NICOTINE 7 MG/24 HOURS TOPICAL PATCH TD SCH (09:50)
[2021-11-29] MEDS: QUEtiapine FUMARATE 50 MG TABLET PO SCH (21:38)
[2021-11-30] MEDS: GABAPENTIN 300 MG CAPSULE PO SCH ×3 (06:38→21:25)
[2021-11-30] MEDS: hydrOXYzine PAMOATE 25 MG CAPSULE (FP) PO SCH ×5 (07:38→21:25)
[2021-11-30] MEDS: LIPASE/PROTEASE/AMYLASE 6,000 UNIT CAPSULE PO SCH ×3 (07:38→17:45)
[2021-11-30] MEDS: THIAMINE HCL 100 MG TABLET (FP) PO SCH ×2 (09:57→21:25)
[2021-11-30] MEDS: FAMOTIDINE 20 MG TABLET PO SCH ×2 (09:57→21:25)
[2021-11-30] MEDS: NICOTINE 7 MG/24 HOURS TOPICAL PATCH TD SCH (09:57)
[2021-11-30] MEDS: QUEtiapine FUMARATE 25 MG TABLET PO SCH (09:57)
[2021-11-30] MEDS: PRENATAL VITAMINS W/ FOLIC ACID TABLET (FP) PO SCH (09:58)
[2021-11-30] MEDS: FOLIC ACID 1 MG TABLET (FP) PO SCH (09:58)
[2021-11-30] MEDS: QUEtiapine FUMARATE 50 MG TABLET PO SCH (21:25)
[2021-12-01] MEDS: GABAPENTIN 300 MG CAPSULE PO SCH ×3 (06:25→21:15)
[2021-12-01] MEDS: hydrOXYzine PAMOATE 25 MG CAPSULE (FP) PO SCH ×5 (06:25→21:15)
[2021-12-01] MEDS: LIPASE/PROTEASE/AMYLASE 6,000 UNIT CAPSULE PO SCH ×3 (07:36→17:50)
[2021-12-01] MEDS: THIAMINE HCL 100 MG TABLET (FP) PO SCH ×2 (09:32→21:14)
[2021-12-01] MEDS: QUEtiapine FUMARATE 25 MG TABLET PO SCH (09:33)
[2021-12-01] MEDS: FAMOTIDINE 20 MG TABLET PO SCH ×2 (09:33→21:15)
[2021-12-01] MEDS: NICOTINE 7 MG/24 HOURS TOPICAL PATCH TD SCH (09:33)
[2021-12-01] MEDS: PRENATAL VITAMINS W/ FOLIC ACID TABLET (FP) PO SCH (09:33)
[2021-12-01] MEDS: FOLIC ACID 1 MG TABLET (FP) PO SCH (09:33)
[2021-12-01] MEDS: QUEtiapine FUMARATE 50 MG TABLET PO SCH (21:15)
[2021-12-02] MEDS: hydrOXYzine PAMOATE 25 MG CAPSULE (FP) PO SCH ×5 (06:20→21:18)
[2021-12-02] MEDS: GABAPENTIN 300 MG CAPSULE PO SCH ×3 (06:20→21:17)
[2021-12-02] MEDS: MAG HYDROX/AL HYDROX/SIMETH 30 ML UNIT-DOSE CUP PO PRN (06:22)
[2021-12-02] MEDS: LIPASE/PROTEASE/AMYLASE 6,000 UNIT CAPSULE PO SCH ×3 (07:40→17:40)
[2021-12-02] MEDS: FOLIC ACID 1 MG TABLET (FP) PO SCH (10:18)
[2021-12-02] MEDS: FAMOTIDINE 20 MG TABLET PO SCH ×2 (10:19→21:17)
[2021-12-02] MEDS: NICOTINE 7 MG/24 HOURS TOPICAL PATCH TD SCH (10:19)
[2021-12-02] MEDS: PRENATAL VITAMINS W/ FOLIC ACID TABLET (FP) PO SCH (10:19)
[2021-12-02] MEDS: QUEtiapine FUMARATE 25 MG TABLET PO SCH (10:20)
[2021-12-02] MEDS: THIAMINE HCL 100 MG TABLET (FP) PO SCH ×2 (10:20→21:17)
[2021-12-02] MEDS: QUEtiapine FUMARATE 50 MG TABLET PO SCH (21:17)
[2021-12-03] MEDS: hydrOXYzine PAMOATE 25 MG CAPSULE (FP) PO SCH ×5 (06:17→21:19)
[2021-12-03] MEDS: GABAPENTIN 300 MG CAPSULE PO SCH ×3 (06:17→21:19)
[2021-12-03] MEDS: SIMETHICONE 80 MG TAB.CHEW (FP) PO PRN (06:18)
[2021-12-03] MEDS: LIPASE/PROTEASE/AMYLASE 6,000 UNIT CAPSULE PO SCH ×3 (07:24→16:43)
[2021-12-03] MEDS: FOLIC ACID 1 MG TABLET (FP) PO SCH (10:05)
[2021-12-03] MEDS: FAMOTIDINE 20 MG TABLET PO SCH ×2 (10:06→21:19)
[2021-12-03] MEDS: PRENATAL VITAMINS W/ FOLIC ACID TABLET (FP) PO SCH (10:06)
[2021-12-03] MEDS: THIAMINE HCL 100 MG TABLET (FP) PO SCH ×2 (10:06→21:18)
[2021-12-03] MEDS: NICOTINE 7 MG/24 HOURS TOPICAL PATCH TD SCH (10:07)
[2021-12-03] MEDS: QUEtiapine FUMARATE 25 MG TABLET PO SCH (10:08)
[2021-12-03] MEDS: QUEtiapine FUMARATE 50 MG TABLET PO SCH (21:19)
[2021-12-04] MEDS: GABAPENTIN 300 MG CAPSULE PO SCH ×3 (06:14→21:17)
[2021-12-04] MEDS: hydrOXYzine PAMOATE 25 MG CAPSULE (FP) PO SCH ×5 (06:14→21:17)
[2021-12-04] MEDS: SIMETHICONE 80 MG TAB.CHEW (FP) PO PRN (06:15)
[2021-12-04] MEDS: LIPASE/PROTEASE/AMYLASE 6,000 UNIT CAPSULE PO SCH ×3 (07:25→16:46)
[2021-12-04] MEDS: NICOTINE 7 MG/24 HOURS TOPICAL PATCH TD SCH (09:55)
[2021-12-04] MEDS: FOLIC ACID 1 MG TABLET (FP) PO SCH (09:55)
[2021-12-04] MEDS: PRENATAL VITAMINS W/ FOLIC ACID TABLET (FP) PO SCH (09:56)
[2021-12-04] MEDS: QUEtiapine FUMARATE 25 MG TABLET PO SCH (09:56)
[2021-12-04] MEDS: FAMOTIDINE 20 MG TABLET PO SCH ×2 (09:56→21:17)
[2021-12-04] MEDS: THIAMINE HCL 100 MG TABLET (FP) PO SCH ×2 (09:57→21:17)
[2021-12-04] MEDS: QUEtiapine FUMARATE 50 MG TABLET PO SCH (21:17)
[2021-12-05] MEDS: GABAPENTIN 300 MG CAPSULE PO SCH ×3 (06:22→21:05)
[2021-12-05] MEDS: SIMETHICONE 80 MG TAB.CHEW (FP) PO PRN ×2 (06:22→10:17)
[2021-12-05] MEDS: hydrOXYzine PAMOATE 25 MG CAPSULE (FP) PO SCH ×5 (06:22→21:05)
[2021-12-05] MEDS: LIPASE/PROTEASE/AMYLASE 6,000 UNIT CAPSULE PO SCH ×3 (07:01→16:45)
[2021-12-05] MEDS: THIAMINE HCL 100 MG TABLET (FP) PO SCH ×2 (10:15→21:05)
[2021-12-05] MEDS: FAMOTIDINE 20 MG TABLET PO SCH ×2 (10:16→21:05)
[2021-12-05] MEDS: FOLIC ACID 1 MG TABLET (FP) PO SCH (10:16)
[2021-12-05] MEDS: NICOTINE 7 MG/24 HOURS TOPICAL PATCH TD SCH (10:16)
[2021-12-05] MEDS: PRENATAL VITAMINS W/ FOLIC ACID TABLET (FP) PO SCH (10:16)
[2021-12-05] MEDS: QUEtiapine FUMARATE 25 MG TABLET PO SCH (10:17)
[2021-12-05] MEDS: ACETAMINOPHEN 325 MG TABLET (FP) PO PRN (15:50)
[2021-12-05] MEDS: QUEtiapine FUMARATE 50 MG TABLET PO SCH (21:05)
[2021-12-06] MEDS: GABAPENTIN 300 MG CAPSULE PO SCH ×3 (06:08→21:29)
[2021-12-06] MEDS: hydrOXYzine PAMOATE 25 MG CAPSULE (FP) PO SCH ×5 (06:08→21:30)
[2021-12-06] MEDS: SIMETHICONE 80 MG TAB.CHEW (FP) PO PRN ×2 (06:11→11:32)
[2021-12-06] MEDS: LIPASE/PROTEASE/AMYLASE 6,000 UNIT CAPSULE PO SCH ×3 (07:43→17:01)
[2021-12-06] MEDS: FAMOTIDINE 20 MG TABLET PO SCH ×2 (09:53→21:29)
[2021-12-06] MEDS: THIAMINE HCL 100 MG TABLET (FP) PO SCH ×2 (09:53→21:29)
[2021-12-06] MEDS: PRENATAL VITAMINS W/ FOLIC ACID TABLET (FP) PO SCH (09:53)
[2021-12-06] MEDS: QUEtiapine FUMARATE 25 MG TABLET PO SCH (09:53)
[2021-12-06] MEDS: FOLIC ACID 1 MG TABLET (FP) PO SCH (09:54)
[2021-12-06] MEDS: NICOTINE 7 MG/24 HOURS TOPICAL PATCH TD SCH (09:54)
[2021-12-06] MEDS: ACETAMINOPHEN 325 MG TABLET (FP) PO PRN (13:01)
[2021-12-06] MEDS: QUEtiapine FUMARATE 50 MG TABLET PO SCH (21:29)
[2021-12-06] MEDS: SUVOREXANT 10 MG TABLET PO PRN (21:32)
[2021-12-07] MEDS: ACETAMINOPHEN 325 MG TABLET (FP) PO PRN ×2 (06:00→22:04)
[2021-12-07] MEDS: GABAPENTIN 300 MG CAPSULE PO SCH ×3 (06:00→21:02)
[2021-12-07] MEDS: hydrOXYzine PAMOATE 25 MG CAPSULE (FP) PO SCH ×5 (06:00→21:02)
[2021-12-07] MEDS: SIMETHICONE 80 MG TAB.CHEW (FP) PO PRN (06:01)
[2021-12-07] MEDS: LIPASE/PROTEASE/AMYLASE 6,000 UNIT CAPSULE PO SCH ×3 (07:07→16:29)
[2021-12-07] MEDS: QUEtiapine FUMARATE 25 MG TABLET PO SCH (10:04)
[2021-12-07] MEDS: FOLIC ACID 1 MG TABLET (FP) PO SCH (10:04)
[2021-12-07] MEDS: PRENATAL VITAMINS W/ FOLIC ACID TABLET (FP) PO SCH (10:04)
[2021-12-07] MEDS: THIAMINE HCL 100 MG TABLET (FP) PO SCH ×2 (10:04→21:01)
[2021-12-07] MEDS: FAMOTIDINE 20 MG TABLET PO SCH ×2 (10:04→21:02)
[2021-12-07] MEDS: NICOTINE 7 MG/24 HOURS TOPICAL PATCH TD SCH (10:05)
[2021-12-07] MEDS: QUEtiapine FUMARATE 50 MG TABLET PO SCH (21:02)
[2021-12-07] MEDS: SUVOREXANT 10 MG TABLET PO PRN (21:03)
[2021-12-08] MEDS: GABAPENTIN 300 MG CAPSULE PO SCH ×3 (06:32→21:04)
[2021-12-08] MEDS: ACETAMINOPHEN 325 MG TABLET (FP) PO PRN (06:32)
[2021-12-08] MEDS: hydrOXYzine PAMOATE 25 MG CAPSULE (FP) PO SCH ×5 (06:32→21:04)
[2021-12-08] MEDS: guaiFENesin 200 MG/10 ML 10 ML UNIT-DOSE CUPS PO PRN (06:32)
[2021-12-08] MEDS: COLLOIDAL OATMEAL 1 BAR EACH TP PRN (06:39)
[2021-12-08] MEDS: LIPASE/PROTEASE/AMYLASE 6,000 UNIT CAPSULE PO SCH ×3 (07:05→17:20)
[2021-12-08] MEDS: PRENATAL VITAMINS W/ FOLIC ACID TABLET (FP) PO SCH (09:43)
[2021-12-08] MEDS: QUEtiapine FUMARATE 25 MG TABLET PO SCH (09:43)
[2021-12-08] MEDS: FOLIC ACID 1 MG TABLET (FP) PO SCH (09:43)
[2021-12-08] MEDS: THIAMINE HCL 100 MG TABLET (FP) PO SCH ×2 (09:43→21:02)
[2021-12-08] MEDS: FAMOTIDINE 20 MG TABLET PO SCH ×2 (09:43→21:04)
[2021-12-08] MEDS: NICOTINE 7 MG/24 HOURS TOPICAL PATCH TD SCH (09:44)
[2021-12-08] MEDS: QUEtiapine FUMARATE 50 MG TABLET PO SCH (21:04)
[2021-12-08] MEDS: SUVOREXANT 10 MG TABLET PO PRN (21:05)
[2021-12-08] MEDS ORDERED: SUVOREXANT 10 MG TABLET PO PRN (22:00)
[2021-12-09] MEDS: GABAPENTIN 300 MG CAPSULE PO SCH ×3 (06:11→21:18)
[2021-12-09] MEDS: hydrOXYzine PAMOATE 25 MG CAPSULE (FP) PO SCH ×5 (06:11→21:18)
[2021-12-09] MEDS: LIPASE/PROTEASE/AMYLASE 6,000 UNIT CAPSULE PO SCH ×3 (07:04→16:40)
[2021-12-09] MEDS: THIAMINE HCL 100 MG TABLET (FP) PO SCH ×2 (10:26→21:18)
[2021-12-09] MEDS: PRENATAL VITAMINS W/ FOLIC ACID TABLET (FP) PO SCH (10:26)
[2021-12-09] MEDS: QUEtiapine FUMARATE 25 MG TABLET PO SCH (10:26)
[2021-12-09] MEDS: FAMOTIDINE 20 MG TABLET PO SCH ×2 (10:26→21:18)
[2021-12-09] MEDS: FOLIC ACID 1 MG TABLET (FP) PO SCH (10:27)
[2021-12-09] MEDS: NICOTINE 7 MG/24 HOURS TOPICAL PATCH TD SCH (10:27)
[2021-12-09] MEDS: SIMETHICONE 80 MG TAB.CHEW (FP) PO PRN ×2 (10:27→14:09)
[2021-12-09] MEDS ORDERED: AMOXICILLIN 500 MG CAPSULE (FP) PO ONE (16:07)
[2021-12-09] MEDS: QUEtiapine FUMARATE 50 MG TABLET PO SCH (21:18)
[2021-12-09] MEDS: AMOXICILLIN 250 MG CAPSULE PO SCH (21:19)
[2021-12-09] MEDS: SUVOREXANT 10 MG TABLET PO PRN (21:20)
[2021-12-09] MEDS ORDERED: SUVOREXANT 10 MG TABLET PO PRN (22:00)
[2021-12-10] MEDS: ACETAMINOPHEN 325 MG TABLET (FP) PO PRN (06:26)
[2021-12-10] MEDS: AMOXICILLIN 250 MG CAPSULE PO SCH ×3 (06:26→21:15)
[2021-12-10] MEDS: GABAPENTIN 300 MG CAPSULE PO SCH ×3 (06:26→21:15)
[2021-12-10] MEDS: hydrOXYzine PAMOATE 25 MG CAPSULE (FP) PO SCH ×5 (06:26→21:15)
[2021-12-10] MEDS: guaiFENesin 200 MG/10 ML 10 ML UNIT-DOSE CUPS PO PRN (06:29)
[2021-12-10] MEDS: LIPASE/PROTEASE/AMYLASE 6,000 UNIT CAPSULE PO SCH ×3 (07:37→17:04)
[2021-12-10] MEDS: FOLIC ACID 1 MG TABLET (FP) PO SCH (10:27)
[2021-12-10] MEDS: THIAMINE HCL 100 MG TABLET (FP) PO SCH ×2 (10:27→21:14)
[2021-12-10] MEDS: PRENATAL VITAMINS W/ FOLIC ACID TABLET (FP) PO SCH (10:27)
[2021-12-10] MEDS: FAMOTIDINE 20 MG TABLET PO SCH ×2 (10:27→21:15)
[2021-12-10] MEDS: QUEtiapine FUMARATE 25 MG TABLET PO SCH (10:28)
[2021-12-10] MEDS: NICOTINE 7 MG/24 HOURS TOPICAL PATCH TD SCH (10:28)
[2021-12-10] MEDS: SIMETHICONE 80 MG TAB.CHEW (FP) PO PRN (10:29)
[2021-12-10] MEDS: QUEtiapine FUMARATE 50 MG TABLET PO SCH (21:15)
[2021-12-11] MEDS: GABAPENTIN 300 MG CAPSULE PO SCH ×3 (06:04→21:26)
[2021-12-11] MEDS: AMOXICILLIN 250 MG CAPSULE PO SCH ×3 (06:04→21:27)
[2021-12-11] MEDS: hydrOXYzine PAMOATE 25 MG CAPSULE (FP) PO SCH ×5 (06:04→21:26)
[2021-12-11] MEDS: guaiFENesin 200 MG/10 ML 10 ML UNIT-DOSE CUPS PO PRN (06:05)
[2021-12-11] MEDS: ACETAMINOPHEN 325 MG TABLET (FP) PO PRN (07:13)
[2021-12-11] MEDS: LIPASE/PROTEASE/AMYLASE 6,000 UNIT CAPSULE PO SCH ×3 (07:26→16:46)
[2021-12-11] MEDS: SIMETHICONE 80 MG TAB.CHEW (FP) PO PRN (10:23)
[2021-12-11] MEDS: THIAMINE HCL 100 MG TABLET (FP) PO SCH ×2 (10:23→21:25)
[2021-12-11] MEDS: PRENATAL VITAMINS W/ FOLIC ACID TABLET (FP) PO SCH (10:23)
[2021-12-11] MEDS: NICOTINE 7 MG/24 HOURS TOPICAL PATCH TD SCH (10:23)
[2021-12-11] MEDS: FAMOTIDINE 20 MG TABLET PO SCH ×2 (10:23→21:26)
[2021-12-11] MEDS: FOLIC ACID 1 MG TABLET (FP) PO SCH (10:24)
[2021-12-11] MEDS: QUEtiapine FUMARATE 25 MG TABLET PO SCH (10:24)
[2021-12-11] MEDS: QUEtiapine FUMARATE 50 MG TABLET PO SCH (21:26)
[2021-12-12] MEDS: guaiFENesin 200 MG/10 ML 10 ML UNIT-DOSE CUPS PO PRN (06:10)
[2021-12-12] MEDS: AMOXICILLIN 250 MG CAPSULE PO SCH ×3 (06:10→21:36)
[2021-12-12] MEDS: GABAPENTIN 300 MG CAPSULE PO SCH ×3 (06:10→21:38)
[2021-12-12] MEDS: hydrOXYzine PAMOATE 25 MG CAPSULE (FP) PO SCH ×6 (06:10→21:36)
[2021-12-12] MEDS: ACETAMINOPHEN 325 MG TABLET (FP) PO PRN (06:10)
[2021-12-12] MEDS: SIMETHICONE 80 MG TAB.CHEW (FP) PO PRN (06:11)
[2021-12-12] MEDS: LIPASE/PROTEASE/AMYLASE 6,000 UNIT CAPSULE PO SCH ×3 (07:23→18:23)
[2021-12-12] MEDS: QUEtiapine FUMARATE 25 MG TABLET PO SCH (10:00)
[2021-12-12] MEDS: NICOTINE 7 MG/24 HOURS TOPICAL PATCH TD SCH (10:00)
[2021-12-12] MEDS: PRENATAL VITAMINS W/ FOLIC ACID TABLET (FP) PO SCH (10:00)
[2021-12-12] MEDS: FOLIC ACID 1 MG TABLET (FP) PO SCH (10:00)
[2021-12-12] MEDS: FAMOTIDINE 20 MG TABLET PO SCH ×2 (10:00→21:38)
[2021-12-12] MEDS: THIAMINE HCL 100 MG TABLET (FP) PO SCH ×2 (10:00→21:36)
[2021-12-12] MEDS: QUEtiapine FUMARATE 50 MG TABLET PO SCH (21:38)
[2021-12-13] MEDS: GABAPENTIN 300 MG CAPSULE PO SCH ×3 (06:33→21:22)
[2021-12-13] MEDS: AMOXICILLIN 250 MG CAPSULE PO SCH ×3 (06:33→21:25)
[2021-12-13] MEDS: hydrOXYzine PAMOATE 25 MG CAPSULE (FP) PO SCH ×5 (07:35→21:22)
[2021-12-13] MEDS: LIPASE/PROTEASE/AMYLASE 6,000 UNIT CAPSULE PO SCH ×3 (07:35→16:47)
[2021-12-13] MEDS: FAMOTIDINE 20 MG TABLET PO SCH ×2 (10:50→21:22)
[2021-12-13] MEDS: SIMETHICONE 80 MG TAB.CHEW (FP) PO PRN (10:50)
[2021-12-13] MEDS: QUEtiapine FUMARATE 25 MG TABLET PO SCH (10:51)
[2021-12-13] MEDS: PRENATAL VITAMINS W/ FOLIC ACID TABLET (FP) PO SCH (10:51)
[2021-12-13] MEDS: FOLIC ACID 1 MG TABLET (FP) PO SCH (10:51)
[2021-12-13] MEDS: THIAMINE HCL 100 MG TABLET (FP) PO SCH ×2 (10:51→21:21)
[2021-12-13] MEDS: NICOTINE 7 MG/24 HOURS TOPICAL PATCH TD SCH (10:52)
[2021-12-13] MEDS: SUVOREXANT 10 MG TABLET PO PRN (21:24)
[2021-12-13] MEDS: QUEtiapine FUMARATE 50 MG TABLET PO SCH (21:25)
[2021-12-14] MEDS: GABAPENTIN 300 MG CAPSULE PO SCH ×3 (06:34→21:10)
[2021-12-14] MEDS: AMOXICILLIN 250 MG CAPSULE PO SCH ×3 (06:34→21:08)
[2021-12-14] MEDS: hydrOXYzine PAMOATE 25 MG CAPSULE (FP) PO SCH ×5 (06:35→21:08)
[2021-12-14] MEDS: LIPASE/PROTEASE/AMYLASE 6,000 UNIT CAPSULE PO SCH ×3 (07:28→16:57)
[2021-12-14] MEDS: THIAMINE HCL 100 MG TABLET (FP) PO SCH ×2 (10:20→21:08)
[2021-12-14] MEDS: FAMOTIDINE 20 MG TABLET PO SCH ×2 (10:20→21:10)
[2021-12-14] MEDS: PRENATAL VITAMINS W/ FOLIC ACID TABLET (FP) PO SCH (10:20)
[2021-12-14] MEDS: QUEtiapine FUMARATE 25 MG TABLET PO SCH (10:21)
[2021-12-14] MEDS: FOLIC ACID 1 MG TABLET (FP) PO SCH (10:21)
[2021-12-14] MEDS: NICOTINE 7 MG/24 HOURS TOPICAL PATCH TD SCH (10:22)
[2021-12-14] MEDS: QUEtiapine FUMARATE 50 MG TABLET PO SCH (21:10)
[2021-12-14] MEDS: SUVOREXANT 10 MG TABLET PO PRN (21:11)
[2021-12-15] MEDS: GABAPENTIN 300 MG CAPSULE PO SCH ×3 (06:26→21:04)
[2021-12-15] MEDS: AMOXICILLIN 250 MG CAPSULE PO SCH ×3 (06:27→21:04)
[2021-12-15] MEDS: ACETAMINOPHEN 325 MG TABLET (FP) PO PRN ×2 (06:28→17:48)
[2021-12-15] MEDS: LIPASE/PROTEASE/AMYLASE 6,000 UNIT CAPSULE PO SCH ×3 (07:22→16:36)
[2021-12-15] MEDS: hydrOXYzine PAMOATE 25 MG CAPSULE (FP) PO SCH ×5 (07:22→21:04)
[2021-12-15] MEDS: THIAMINE HCL 100 MG TABLET (FP) PO SCH ×2 (10:15→21:03)
[2021-12-15] MEDS: SIMETHICONE 80 MG TAB.CHEW (FP) PO PRN ×2 (10:15→14:05)
[2021-12-15] MEDS: FAMOTIDINE 20 MG TABLET PO SCH ×2 (10:16→21:04)
[2021-12-15] MEDS: QUEtiapine FUMARATE 25 MG TABLET PO SCH (10:16)
[2021-12-15] MEDS: NICOTINE 7 MG/24 HOURS TOPICAL PATCH TD SCH (10:16)
[2021-12-15] MEDS: PRENATAL VITAMINS W/ FOLIC ACID TABLET (FP) PO SCH (10:16)
[2021-12-15] MEDS: FOLIC ACID 1 MG TABLET (FP) PO SCH (10:16)
[2021-12-15] MEDS: MAG HYDROX/AL HYDROX/SIMETH 30 ML UNIT-DOSE CUP PO PRN (11:36)
[2021-12-15] MEDS: QUEtiapine FUMARATE 50 MG TABLET PO SCH (21:04)
[2021-12-15] MEDS: SUVOREXANT 10 MG TABLET PO PRN (21:05)
[2021-12-16] MEDS: GABAPENTIN 300 MG CAPSULE PO SCH ×3 (06:28→21:07)
[2021-12-16] MEDS: AMOXICILLIN 250 MG CAPSULE PO SCH ×2 (06:28→14:17)
[2021-12-16] MEDS: LIPASE/PROTEASE/AMYLASE 6,000 UNIT CAPSULE PO SCH ×3 (07:34→16:39)
[2021-12-16] MEDS: ACETAMINOPHEN 325 MG TABLET (FP) PO PRN (07:34)
[2021-12-16] MEDS: hydrOXYzine PAMOATE 25 MG CAPSULE (FP) PO SCH ×5 (07:34→22:30)
[2021-12-16] MEDS: PRENATAL VITAMINS W/ FOLIC ACID TABLET (FP) PO SCH (09:37)
[2021-12-16] MEDS: FAMOTIDINE 20 MG TABLET PO SCH ×2 (09:37→21:07)
[2021-12-16] MEDS: QUEtiapine FUMARATE 25 MG TABLET PO SCH (09:37)
[2021-12-16] MEDS: FOLIC ACID 1 MG TABLET (FP) PO SCH (09:37)
[2021-12-16] MEDS: THIAMINE HCL 100 MG TABLET (FP) PO SCH ×2 (09:37→21:07)
[2021-12-16] MEDS: NICOTINE 7 MG/24 HOURS TOPICAL PATCH TD SCH (09:39)
[2021-12-16] MEDS: SUVOREXANT 10 MG TABLET PO PRN (21:06)
[2021-12-16] MEDS: SIMETHICONE 80 MG TAB.CHEW (FP) PO PRN (21:06)
[2021-12-16] MEDS: QUEtiapine FUMARATE 50 MG TABLET PO SCH (21:07)
[2021-12-17] MEDS: hydrOXYzine PAMOATE 25 MG CAPSULE (FP) PO SCH ×5 (06:25→22:07)
[2021-12-17] MEDS: GABAPENTIN 300 MG CAPSULE PO SCH ×3 (06:25→22:06)
[2021-12-17] MEDS: ACETAMINOPHEN 325 MG TABLET (FP) PO PRN (06:25)
[2021-12-17] MEDS: SIMETHICONE 80 MG TAB.CHEW (FP) PO PRN (07:06)
[2021-12-17] MEDS: LIPASE/PROTEASE/AMYLASE 6,000 UNIT CAPSULE PO SCH ×3 (07:29→16:57)
[2021-12-17] MEDS: FOLIC ACID 1 MG TABLET (FP) PO SCH (10:04)
[2021-12-17] MEDS: NICOTINE 7 MG/24 HOURS TOPICAL PATCH TD SCH (10:04)
[2021-12-17] MEDS: QUEtiapine FUMARATE 25 MG TABLET PO SCH (10:05)
[2021-12-17] MEDS: FAMOTIDINE 20 MG TABLET PO SCH ×2 (10:05→22:06)
[2021-12-17] MEDS: PRENATAL VITAMINS W/ FOLIC ACID TABLET (FP) PO SCH (10:05)
[2021-12-17] MEDS: THIAMINE HCL 100 MG TABLET (FP) PO SCH ×2 (10:06→22:07)
[2021-12-17] MEDS: SUVOREXANT 10 MG TABLET PO PRN (21:35)
[2021-12-17] MEDS: QUEtiapine FUMARATE 50 MG TABLET PO SCH (22:06)
[2021-12-18] MEDS: hydrOXYzine PAMOATE 25 MG CAPSULE (FP) PO SCH ×5 (06:05→21:28)
[2021-12-18] MEDS: GABAPENTIN 300 MG CAPSULE PO SCH ×3 (06:05→21:28)
[2021-12-18] MEDS: SIMETHICONE 80 MG TAB.CHEW (FP) PO PRN ×3 (06:06→14:00)
[2021-12-18] MEDS: LIPASE/PROTEASE/AMYLASE 6,000 UNIT CAPSULE PO SCH ×3 (07:45→16:48)
[2021-12-18] MEDS: THIAMINE HCL 100 MG TABLET (FP) PO SCH ×2 (10:07→21:28)
[2021-12-18] MEDS: FAMOTIDINE 20 MG TABLET PO SCH ×2 (10:07→21:28)
[2021-12-18] MEDS: FOLIC ACID 1 MG TABLET (FP) PO SCH (10:08)
[2021-12-18] MEDS: QUEtiapine FUMARATE 25 MG TABLET PO SCH (10:08)
[2021-12-18] MEDS: PRENATAL VITAMINS W/ FOLIC ACID TABLET (FP) PO SCH (10:08)
[2021-12-18] MEDS: NICOTINE 7 MG/24 HOURS TOPICAL PATCH TD SCH (10:09)
[2021-12-18] MEDS: SUVOREXANT 10 MG TABLET PO PRN (21:27)
[2021-12-18] MEDS: QUEtiapine FUMARATE 50 MG TABLET PO SCH (21:28)
[2021-12-19] MEDS: hydrOXYzine PAMOATE 25 MG CAPSULE (FP) PO SCH ×2 (06:10→09:17)
[2021-12-19] MEDS: SIMETHICONE 80 MG TAB.CHEW (FP) PO PRN (06:10)
[2021-12-19] MEDS: GABAPENTIN 300 MG CAPSULE PO SCH (06:10)
[2021-12-19 06:39] VITALS: BP 109/76; PULSE 93; TEMP 98.2
[2021-12-19] MEDS: ACETAMINOPHEN 325 MG TABLET (FP) PO PRN (07:06)
[2021-12-19] MEDS: LIPASE/PROTEASE/AMYLASE 6,000 UNIT CAPSULE PO SCH (07:27)
[2021-12-19] MEDS: FOLIC ACID 1 MG TABLET (FP) PO SCH (09:15)
[2021-12-19] MEDS: NICOTINE 7 MG/24 HOURS TOPICAL PATCH TD SCH (09:16)
[2021-12-19] MEDS: THIAMINE HCL 100 MG TABLET (FP) PO SCH (09:16)
[2021-12-19] MEDS: FAMOTIDINE 20 MG TABLET PO SCH (09:16)
[2021-12-19] MEDS: PRENATAL VITAMINS W/ FOLIC ACID TABLET (FP) PO SCH (09:17)
[2021-12-19] MEDS: QUEtiapine FUMARATE 25 MG TABLET PO SCH (09:17)
== END 2021-12-19 09:45 | disposition home or self-care (01) | DRG 772 ==
LOC: YASAS 15:49 → Y3E 17:36
PROVIDERS: ADMIT Allergy & Immunology; ATTEND Surgery
PROC: HZ42ZZZ Group Counseling for Substance Abuse Treatment, Cognitive-Behavioral (ICD-10-PCS; principal; 2021-11-21)
DX: F10.20 Alcohol dependence, uncomplicated (principal); F12.20 Cannabis dependence, uncomplicated; F11.20 Opioid dependence, uncomplicated; F17.210 Nicotine dependence, cigarettes, uncomplicated; F10.282 Alcohol dependence with alcohol-induced sleep disorder; F10.24 Alcohol dependence with alcohol-induced mood disorder; D50.9 Iron deficiency anemia, unspecified; K86.0 Alcohol-induced chronic pancreatitis; K21.9 Gastro-esophageal reflux disease without esophagitis; J06.9 Acute upper respiratory infection, unspecified; R63.4 Abnormal weight loss; Z68.1 Body mass index [BMI] 19.9 or less, adult
CPT/HCPCS: 36415; 80053; 81003; 85027; 86780; 86803; C9803-CS; U0003; U0005